=== PATIENT | male | born 1970 | race Caucasian/White ===

== ENCOUNTER 2018-11-28 17:12 | Emergency (ER) | payer BC ==
[2018-11-28] MEDS ORDERED: Sodium Chloride 0.9% 1,000 ML IV ONE (17:19)
[2018-11-28] MEDS ORDERED: Ondansetron 4 MG/2 ML SDV IVPUSH ONE (17:19)
[2018-11-28] MEDS ORDERED: Ketorolac 30 MG/ML SDV IVPUSH ONE (17:19)
--- NOTE | 2018-11-28 17:32 | EDM.PDOC ---
ED HPI GENERAL MEDICAL PROBLEM - General Chief Complaint: Abdominal Pain Stated Complaint: ABDOMINAL PAIN Time Seen by Provider: 11/28/18 17:26 - History of Present Illness INITIAL COMMENTS - FREE TEXT/NARRATIVE: HISTORY AND PHYSICAL: History of present illness: Patient's 47-year-old white male presents with a concern of discomfort with urination and suprapubic discomfort he's had this off and on for the last 2 weeks denies fever chills nausea vomiting denies urethral discharge denies history of prostatitis denies concern of STD Review of systems: As per history of present illness and below otherwise all systems reviewed and negative. Past medical history: As per history of present illness and as reviewed below otherwise noncontributory. Surgical history: As per history of present illness and as reviewed below otherwise noncontributory. Social history: No reported history of drug or alcohol abuse. Family history: As per history of present illness and as reviewed below otherwise noncontributory. Physical exam: HEENT: Atraumatic, normocephalic, pupils reactive, negative for conjunctival pallor or scleral icterus, mucous membranes moist, throat clear, neck supple, nontender, trachea midline. Lungs: Clear to auscultation, breath sounds equal bilaterally, chest nontender. Heart: S1S2, regular, negative for clicks, rubs, or JVD. Abdomen: Soft, nondistended, nontender. Negative for masses or hepatosplenomegaly. Negative for costovertebral tenderness. Pelvis: Stable nontender. Genitourinary: Deferred. Rectal: Deferred. Extremities: Atraumatic, negative for cords or calf pain. Neurovascular unremarkable. Neuro: Awake, alert, oriented. Cranial nerves II through XII unremarkable. Cerebellum unremarkable. Motor and sensory unremarkable throughout. Exam nonfocal. Diagnostics: UA with reflex micro-/culture Therapeutics: None Impression: #1 UTI Definitive disposition and diagnosis as appropriate pending reevaluation and review of above. - Related Data Allergies Allergy/AdvReac Type Severity Reaction Status Date / Time No Known Allergies Allergy Verified 11/28/18 17:28 Home Meds: Home Meds Lisinopril 10 mg PO DAILY #10 tablet 08/23/18 [Rx] Past Medical History HEENT History: Reports: None Other HEENT History: wears contacts Cardiovascular History: Reports: Hypertension Respiratory History: Reports: None Gastrointestinal History: Reports: None Genitourinary History: Reports: None Musculoskeletal History: Reports: Back Pain, Chronic Neurological History: Reports: None Psychiatric History: Reports: Anxiety Endocrine/Metabolic History: Reports: Obesity/BMI 30+ Hematologic History: Reports: None Immunologic History: Reports: None Oncologic (Cancer) History: Reports: None Dermatologic History: Reports: None - Infectious Disease History Infectious Disease History: Reports: Chicken Pox - Past Surgical History Head Surgeries/Procedures: Reports: None HEENT Surgical History: Reports: Eye Surgery (right eye foreign body removal, cataract removal) Cardiovascular Surgical History: Reports: None Respiratory Surgical History: Reports: None GI Surgical History: Reports: None Male Surgical History: Reports: None Endocrine Surgical History: Reports: None Neurological Surgical History: Reports: None Musculoskeletal Surgical History: Reports: None Oncologic Surgical History: Reports: None Dermatological Surgical History: Reports: None Social & Family History - Family History Family Medical History: Noncontributory Cardiac: Reports: Hypertension - Caffeine Use Caffeine Use: Reports: Coffee ED ROS GENERAL - Review of Systems Review Of Systems: ROS reveals no pertinent complaints other than HPI. ED EXAM, GENERAL - Physical Exam Exam: See Below (See dictation) Course - Vital Signs Text/Narrative:: I discussed with patient need to follow-up nonspecific CT scan findings and nonspecific interval change patient understands and agrees. Last Recorded V/S: Last Vital Signs Temp 36.2 C 11/28/18 17:25 Pulse 70 11/28/18 17:25 Resp 18 11/28/18 17:25 BP 135/94 H 11/28/18 17:25 Pulse Ox 97 11/28/18 17:25 - Orders/Labs/Meds Orders: Active Orders 24 hr Category Date Time Status CHLAMYDIA AND GONORRHEA BY TMA Stat Lab 11/28/18 17:50 Received Labs: Laboratory Tests 11/28/18 11/28/18 11/28/18 Range/Units 17:35 17:57 17:57 WBC 5.74 (4.0-11.0) K/uL RBC 5.02 (4.50-5.90) M/uL Hgb 15.3 (13.0-17.0) g/dL Hct 45.1 (38.0-50.0) % MCV 89.8 (80.0-98.0) fL MCH 30.5 (27.0-32.0) pg MCHC 33.9 (31.0-37.0) g/dL RDW Std Deviation 42.9 (28.0-62.0) fl RDW Coeff of Brigida 13 (11.0-15.0) % Plt Count 253 (150-400) K/uL MPV 9.60 (7.40-12.00) fL Neut % (Auto) 49.5 (48.0-80.0) % Lymph % (Auto) 40.6 H (16.0-40.0) % [place] % (Auto) 6.8 (0.0-15.0) % Eos % (Auto) 2.4 (0.0-7.0) % Baso % (Auto) 0.7 (0.0-1.5) % Neut # (Auto) 2.8 (1.4-5.7) K/uL Lymph # (Auto) 2.3 (0.6-2.4) K/uL [place] # (Auto) 0.4 (0.0-0.8) K/uL Eos # (Auto) 0.1 (0.0-0.7) K/uL Baso # (Auto) 0.0 (0.0-0.1) K/uL Nucleated RBC % 0.0 /100WBC Nucleated RBCs # 0 K/uL Sodium 141 (136-148) mmol/L Potassium 4.1 (3.5-5.1) mmol/L Chloride 105 (98-107) mmol/L Carbon Dioxide 30.3 (21.0-32.0) mmol/L BUN 16 (7.0-18.0) mg/dL Creatinine 1.2 (0.8-1.3) mg/dL Est Cr Clr Drug Dosing 87.85 mL/min Estimated GFR (MDRD) > 60.0 ml/min Glucose 80 (74-106) mg/dL Calcium 9.4 (8.5-10.1) mg/dL Total Bilirubin 0.5 (0.2-1.0) mg/dL AST 14 L (15-37) IU/L ALT 17 (14-63) IU/L Alkaline Phosphatase 51 (46-116) U/L Total Protein 7.3 (6.4-8.2) g/dL Albumin 4.1 (3.4-5.0) g/dL Globulin 3.2 (2.6-4.0) g/dL Albumin/Globulin Ratio 1.3 (0.9-1.6) Urine Color YELLOW Urine Appearance CLEAR Urine pH 5.5 (5.0-8.0) Ur Specific [place] >= 1.030 (1.001-1.035) Urine Protein NEGATIVE (NEGATIVE) mg/dL Urine Glucose (UA) NEGATIVE (NEGATIVE) mg/dL Urine Ketones NEGATIVE (NEGATIVE) mg/dL Urine Occult Blood NEGATIVE (NEGATIVE) Urine Nitrite NEGATIVE (NEGATIVE) Urine Bilirubin NEGATIVE (NEGATIVE) Urine Urobilinogen 0.2 (<2.0) EU/dL Ur Leukocyte Esterase NEGATIVE (NEGATIVE) Meds: Medications Discontinued Medications Generic Name Dose Route Start Last Admin Trade Name Dennisq PRN Reason Stop Dose Admin Colchicine Confirm 11/28/18 18:51 11/28/18 19:07 Colcrys Administered 11/28/18 18:52 Not Given Dose 1.8 mg .ROUTE .STK-MED ONE Sodium Chloride 1,000 mls @ 999 mls/hr 11/28/18 17:19 11/28/18 17:39 Normal Saline IV 11/28/18 18:19 Not Given STAT ONE Ketorolac Tromethamine 30 mg 11/28/18 17:19 11/28/18 17:39 Toradol IVPUSH 11/28/18 17:20 Not Given ONETIME ONE Ondansetron HCl 4 mg 11/28/18 17:19 11/28/18 17:39 Zofran IVPUSH 11/28/18 17:20 Not Given ONETIME ONE Departure - Departure Time of Disposition: 19:10 Disposition: Home, Self-Care 01 Condition: Good Clinical Impression: Encounter for medical screening examination, Urethritis - Discharge Information Referrals: Oniel Weiss MD [Primary Care Provider] - Forms: ED Department Discharge Additional Instructions: The following information is given to patients seen in the emergency department who are being discharged to home. This information is to outline your options for follow-up care. We provide all patients seen in our emergency department with a follow-up referral. The need for follow-up, as well as the timing and circumstances, are variable depending upon the specifics of your emergency department visit. If you don't have a primary care physician on staff, we will provide you with a referral. We always advise you to contact your personal physician following an emergency department visit to inform them of the circumstance of the visit and for follow-up with them and/or the need for any referrals to a consulting specialist. The emergency department will also refer you to a specialist when appropriate. This referral assures that you have the opportunity for followup care with a specialist. All of these measure are taken in an effort to provide you with optimal care, which includes your followup. Under all circumstances we always encourage you to contact your private physician who remains a resource for coordinating your care. When calling for followup care, please make the office aware that this follow-up is from your recent emergency room visit. If for any reason you are refused follow-up, please contact the [facility] emergency department at and asked to speak to the emergency department charge nurse. Doxycycline as prescribed follow-up primary medical doctor as needed as discussed and return as needed as discussed - My Orders Last 24 Hours: My Active Orders 11/28/18 17:50 CHLAMYDIA AND GONORRHEA BY TMA Stat - Assessment/Plan Last 24 Hours: My Active Orders 11/28/18 17:50 CHLAMYDIA AND GONORRHEA BY TMA Stat
[2018-11-28 18:50] LABS: CHLORIDE,CL 105 mmol/L (98-107); SODIUM,NA 141 mmol/L (136-148)
[2018-11-28] MEDS ORDERED: Colchicine 0.6 MG Tab ONE (18:51)
--- NOTE | 2018-11-28 19:06 | CT ---
HISTORY: Abdominal pain. TECHNIQUE: CT abdomen pelvis without contrast. COMPARISON: CT abdomen pelvis 10/09/2018. FINDINGS: Abdomen: Liver, pancreas, spleen, adrenal glands, and kidneys are unremarkable. No hydronephrosis. No dilated bowel. Appendix is normal. No free fluid or free intraperitoneal gas. Few lymph nodes in the central mesentery have increased in size since comparison CT. Largest lymph node measures 12 mm short axis (series 201 image 77). No abdominal aortic aneurysm. Pelvis: No lymphadenopathy. Musculoskeletal: Mild degenerative changes of the spine. Lower chest: 4-5 mm noncalcified subpleural nodule in the right lower lobe (series 201 image 15) is unchanged. IMPRESSION: 1. Increase in size of a few mesenteric lymph nodes since 10/09/2018 CT. At least one mesenteric lymph node is mildly enlarged. Lymph nodes may be reactive. Recommend follow-up CT in 3-6 months to assess stability. 2. No acute findings in the abdomen or pelvis otherwise. 3. Unchanged small pleural nodule in the right lower lobe. If patient is high risk for malignancy, consider follow-up chest CT in October 2019. Please note that all CT scans at this facility use dose modulation, iterative reconstruction, and/or weight-based dosing when appropriate to reduce radiation dose to as low as reasonably achievable. Dictated by Chris Garcia MD @ Nov 28 2018 6:49PM Signed by Dr. Chris Garcia @ Nov 28 2018 7:04PM
[2018-11-28 19:40] VITALS: BP 128/81
== END 2018-11-28 19:30 | disposition home or self-care (01) ==
LOC: MW.ED 17:12
DX: N34.2 Other urethritis (principal); I10 Essential (primary) hypertension; Z79.899 Other long term (current) drug therapy; Z98.890 Other specified postprocedural states
CPT/HCPCS: 36415; 74176; 74176-26; 80053; 81003; 85025; 87491; 87591; 99284-25

== ENCOUNTER 2019-03-26 18:14 | Emergency (ER) | payer BC ==
[2019-03-26] MEDS ORDERED: Ketorolac 60 MG/2 ML SDV IM ONE (18:41)
--- NOTE | 2019-03-26 18:41 | EDM.PDOC ---
ED HPI GENERAL MEDICAL PROBLEM - General Chief Complaint: Upper Extremity Injury/Pain Stated Complaint: SHOULDER PAIN/HEADACHE Time Seen by Provider: 03/26/19 18:28 Source of Information: Reports: Patient History Limitations: Reports: No Limitations - History of Present Illness INITIAL COMMENTS - FREE TEXT/NARRATIVE: HISTORY AND PHYSICAL: History of present illness: Patient is a 48-year-old male presents to the ED today with concern of right shoulder pain 1 week. Patient states he feels as if the pain starts his neck and it shoots down to her shoulder. Patient denies any injury to his neck or shoulder. Patient has not taken anything for his symptoms. Patient states he came into the ED today because he was told by a friend that shoulder pain can be a sign of a heart attack. Patient denies any chest pain, shortness of breath , or diaphoresis. Patient denies any other symptoms at this time. Patient denies fever, chills, chest pain, shortness of breath, or cough. Denies headache, neck stiff ness, change in vision, syncope, or near syncope. Denies nausea, vomiting, abdominal pain, diarrhea, constipation, or dysuria. Has not noted any blood in urine or stool. Patient has been eating and drinking appropriately. Patient denies any health history. Review of systems: As per history of present illness and below otherwise all systems reviewed and negative. Past medical history: As per history of present illness and as reviewed below otherwise noncontributory. Surgical history: As per history of present illness and as reviewed below otherwise noncontributory. Social history: See social history for further information Family history: As per history of present illness and as reviewed below otherwise noncontributory. Physical exam: General: Patient is alert, oriented, and in no acute distress. Patient sitting comfortably on exam table. HEENT: Atraumatic, normocephalic, pupils equal and reactive bilaterally, negative for conjunctival pallor or scleral icterus, mucous membranes moist, TMs normal bilaterally, throat clear, neck supple, nontender, trachea midline. No drooling or trismus noted. No meningeal signs. No hot potato voice noted. Lungs: Clear to auscultation, breath sounds equal bilaterally, chest nontender. Heart: S1S2, regular rate and rhythm without overt murmur Abdomen: Soft, nondistended, nontender. Negative for masses or hepatosplenomegaly. Negative for costovertebral tenderness. Pelvis: Stable nontender. Genitourinary: Deferred. Rectal: Deferred. Skin: Intact, warm, dry. No lesions or rashes noted. Extremities: Atraumatic, negative for cords or calf pain. Neurovascular unremarkable. No obvious deformities, step-offs, or crepitus of the complete spine and right shoulder. Generalized pain to palpation of the right shoulder. Patient has full range of motion of the shoulder without difficulty or pain. Mild pain to palpation of the cervical spine with reproducible shoulder pain to palpation. Radial pulses grossly intact with capillary refill less than 2 seconds. Neuro: Awake, alert, oriented. Cranial nerves II through XII unremarkable. Cerebellum unremarkable. Motor and sensory unremarkable throughout. Exam nonfocal. Notes: Discussed the importance for follow-up with primary care provider and with orthopedic clinic. Voices understanding and is agreeable to plan of care. Denies any further questions or concerns at this time. Diagnostics: Cervical spine x-ray, right shoulder x-ray, CBC, CMP, troponin, EKG Therapeutics: Toradol Prescription: Diclofenac, Flexeril Impression: Cervical radiculopathy Plan: 1. Take medication as prescribed. You can also use Tylenol as directed for pain and discomfort. 2. Follow-up with a primary care provider or orthopedic provider as discussed. Return to ED as needed and as discussed. Definitive disposition and diagnosis as appropriate pending reevaluation and review of above. right sholuder Pain Score (Numeric/FACES): 8 - Related Data Allergies Allergy/AdvReac Type Severity Reaction Status Date / Time No Known Allergies Allergy Verified 03/26/19 18:28 Home Meds: Home Meds Lisinopril 10 mg PO DAILY #10 tablet 08/23/18 [Rx] Cyclobenzaprine [Flexeril] 10 mg PO TID PRN #10 tab 03/26/19 [Rx] Diclofenac Sodium [Voltaren] 75 mg PO BIDMEALS PRN #12 tab.cr 03/26/19 [Rx] Past Medical History HEENT History: Reports: None Other HEENT History: wears contacts Cardiovascular History: Reports: Hypertension Respiratory History: Reports: None Gastrointestinal History: Reports: None Genitourinary History: Reports: None Musculoskeletal History: Reports: Back Pain, Chronic Neurological History: Reports: None Psychiatric History: Reports: Anxiety Endocrine/Metabolic History: Reports: Obesity/BMI 30+ Hematologic History: Reports: None Immunologic History: Reports: None Oncologic (Cancer) History: Reports: None Dermatologic History: Reports: None - Infectious Disease History Infectious Disease History: Reports: Chicken Pox - Past Surgical History Head Surgeries/Procedures: Reports: None HEENT Surgical History: Reports: Eye Surgery Cardiovascular Surgical History: Reports: None Respiratory Surgical History: Reports: None GI Surgical History: Reports: None Male Surgical History: Reports: None Endocrine Surgical History: Reports: None Neurological Surgical History: Reports: None Musculoskeletal Surgical History: Reports: None Oncologic Surgical History: Reports: None Dermatological Surgical History: Reports: None Social & Family History - Family History Family Medical History: Noncontributory Cardiac: Reports: Hypertension - Tobacco Use Smoking Status *Q: Never Smoker Second Hand Smoke Exposure: No - Caffeine Use Caffeine Use: Reports: Coffee - Recreational Drug Use Recreational Drug Use: No Review of Systems - Review of Systems Review Of Systems: ROS reveals no pertinent complaints other than HPI. ED EXAM, GENERAL - Physical Exam Exam: See Below (See dictation) Course - Vital Signs Last Recorded V/S: Last Vital Signs Temp 35.8 C 03/26/19 18:24 Pulse 69 03/26/19 21:00 Resp 16 03/26/19 21:00 BP 112/76 03/26/19 21:00 Pulse Ox 95 03/26/19 21:00 - Orders/Labs/Meds Orders: Active Orders 24 hr Category Date Time Status EKG Documentation Completion [RC] STAT Care 03/26/19 18:28 Active Labs: Laboratory Tests 03/26/19 03/26/19 Range/Units 18:36 18:36 WBC 5.70 (4.0-11.0) K/uL RBC 5.03 (4.50-5.90) M/uL Hgb 15.4 (13.0-17.0) g/dL Hct 45.3 (38.0-50.0) % MCV 90.1 (80.0-98.0) fL MCH 30.6 (27.0-32.0) pg MCHC 34.0 (31.0-37.0) g/dL RDW Std Deviation 43.0 (28.0-62.0) fl RDW Coeff of Brigida 13 (11.0-15.0) % Plt Count 270 (150-400) K/uL MPV 9.90 (7.40-12.00) fL Neut % (Auto) 58.3 (48.0-80.0) % Lymph % (Auto) 32.6 (16.0-40.0) % [place] % (Auto) 5.3 (0.0-15.0) % Eos % (Auto) 3.3 (0.0-7.0) % Baso % (Auto) 0.5 (0.0-1.5) % Neut # (Auto) 3.3 (1.4-5.7) K/uL Lymph # (Auto) 1.9 (0.6-2.4) K/uL [place] # (Auto) 0.3 (0.0-0.8) K/uL Eos # (Auto) 0.2 (0.0-0.7) K/uL Baso # (Auto) 0.0 (0.0-0.1) K/uL Nucleated RBC % 0.0 /100WBC Nucleated RBCs # 0 K/uL Sodium 140 (136-148) mmol/L Potassium 3.4 L (3.5-5.1) mmol/L Chloride 105 (98-107) mmol/L Carbon Dioxide 25.3 (21.0-32.0) mmol/L BUN 16 (7.0-18.0) mg/dL Creatinine 1.2 (0.8-1.3) mg/dL Est Cr Clr Drug Dosing 86.93 mL/min Estimated GFR (MDRD) > 60.0 ml/min Glucose 168 H (74-106) mg/dL Calcium 9.0 (8.5-10.1) mg/dL Total Bilirubin 0.4 (0.2-1.0) mg/dL AST 21 (15-37) IU/L ALT 36 (14-63) IU/L Alkaline Phosphatase 49 (46-116) U/L Troponin I < 0.050 (0.000-0.056) ng/mL Total Protein 7.6 (6.4-8.2) g/dL Albumin 4.3 (3.4-5.0) g/dL Globulin 3.3 (2.6-4.0) g/dL Albumin/Globulin Ratio 1.3 (0.9-1.6) Meds: Medications Discontinued Medications Generic Name Dose Route Start Last Admin Trade Name Freq PRN Reason Stop Dose Admin Ketorolac Tromethamine 60 mg 03/26/19 18:41 03/26/19 19:02 Toradol IM 03/26/19 18:42 60 mg ONETIME ONE Administration Departure - Departure Time of Disposition: 20:46 Disposition: Home, Self-Care 01 Clinical Impression: Cervical radicular pain - Discharge Information Prescriptions: Cyclobenzaprine [Flexeril] 10 mg PO TID PRN #10 tab PRN Reason: Spasms Diclofenac Sodium [Voltaren] 75 mg PO BIDMEALS PRN #12 tab.cr PRN Reason: Pain Instructions: Cervical Sprain, [id number] Referrals: PCP,None [Primary Care Provider] - Forms: ED Department Discharge Additional Instructions: The following information is given to patients seen in the emergency department who are being discharged to home. This information is to outline your options for follow-up care. We provide all patients seen in our emergency department with a follow-up referral. The need for follow-up, as well as the timing and circumstances, are variable depending upon the specifics of your emergency department visit. If you don't have a primary care physician on staff, we will provide you with a referral. We always advise you to contact your personal physician following an emergency department visit to inform them of the circumstance of the visit and for follow-up with them and/or the need for any referrals to a consulting specialist. The emergency department will also refer you to a specialist when appropriate. This referral assures that you have the opportunity for follow-up care with a specialist. All of these measure are taken in an effort to provide you with optimal care, which includes your follow-up. Under all circumstances we always encourage you to contact your private physician who remains a resource for coordinating your care. When calling for follow-up care, please make the office aware that this follow-up is from your recent emergency room visit. If for any reason you are refused follow-up, please contact the [facility] Emergency Department at and asked to speak to the emergency department charge nurse. [facility] [address] [place] [id number] [facility] [address] [place] [address] 1. Take medication as prescribed. You can also use Tylenol as directed for pain and discomfort. 2. Follow-up with a primary care provider or orthopedic provider as discussed. Return to ED as needed and as discussed. - My Orders Last 24 Hours: My Active Orders 03/26/19 18:28 EKG Documentation Completion [RC] STAT - Assessment/Plan Last 24 Hours: My Active Orders 03/26/19 18:28 EKG Documentation Completion [RC] STAT
[2019-03-26 19:14] LABS: CHLORIDE,CL 105 mmol/L (98-107); SODIUM,NA 140 mmol/L (136-148)
[2019-03-26 21:01] VITALS: BP 112/76
--- NOTE | 2019-03-26 21:03 | CR ---
HISTORY: Right shoulder pain, fall. TECHNIQUE: Two views of the right shoulder. COMPARISON: No prior. FINDINGS: The glenohumeral joint alignment is not optimally determined on the transscapular Y-view. If there is clinical concern for a posterior shoulder dislocation, consider obtaining an axillary view. No proximal humeral fracture. AC joint degenerative arthrosis. No abnormality within the right lung. IMPRESSION: 1. No acute fracture. 2. The glenohumeral joint alignment is not optimally determined on these views. If there is clinical concern for a posterior shoulder dislocation, an axillary view could be obtained to better delineate alignment. Dictated by Arturo Barrett MD @ 03/26/2019 9:02:31 PM Dictated by: Arturo Barrett MD @ 03/26/2019 21:02:37 (Electronically Signed)
--- NOTE | 2019-03-26 21:05 | CR ---
HISTORY: Pain. TECHNIQUE: Three views of the cervical spine. COMPARISON: No prior. FINDINGS: The cervical alignment is maintained. There is no acute fracture. Mild loss of disc height at C5-C6. The dens appears intact. Normal articulation of the lateral masses of C1 and C2. No abnormal prevertebral soft tissue swelling. IMPRESSION: 1. No acute fracture or malalignment. 2. Mild loss of disc height at C5-C6. Dictated by Arturo Barrett MD @ 03/26/2019 9:04:19 PM Dictated by: Arturo Barrett MD @ 03/26/2019 21:04:25 (Electronically Signed)
== END 2019-03-26 21:02 | disposition home or self-care (01) ==
LOC: MW.ED 18:14
DX: M54.12 Radiculopathy, cervical region (principal); I10 Essential (primary) hypertension; F41.9 Anxiety disorder, unspecified; Z79.899 Other long term (current) drug therapy
CPT/HCPCS: 36415; 72040; 73030; 80053; 84484; 85025; 93005; 96372; 99284; J1885

== ENCOUNTER 2019-06-18 13:24 | Observation (INO) | payer BC ==
[2019-06-18] MEDS ORDERED: Sodium Chloride 0.9% 1,000 ML IV ONE ×3 (13:25→16:41)
[2019-06-18] MEDS ORDERED: Sodium Chloride 0.9% 10 ML SDV IV PRN (13:45)
[2019-06-18] MEDS ORDERED: Sodium Chloride 0.9% 2.5 ML Syringe FLUSH PRN (13:45)
[2019-06-18] MEDS ORDERED: Sodium Chloride 0.9% 10 ML Syringe FLUSH PRN (13:45)
--- NOTE | 2019-06-18 14:05 | CT ---
INDICATION: Stroke protocol. COMPARISON: None available. TECHNIQUE: CT examination of the head was performed with 3 mm thick axial sections without intravenous contrast. Images were obtained from the vertex of the skull through the skull base, and I examined the images with the brain and bone windows. Please note that all CT scans at this facility use dose modulation, iterative reconstruction, and/or weight-based dosing when appropriate to reduce radiation dose to as low as reasonably achievable. FINDINGS: : The brain is normal in appearance for the patient`s age on today`s study, with no sign of mass lesion, mass effect, hemorrhage, or edema. The ventricles and sulci are normal in appearance for the patient`s age. There appears to have been resection of the lens from the right globe, with a tiny radiodense foreign body located along the medial aspect of the residual lens or lens implant. The left globe is normal in appearance. There is an old medial left orbital blowout fracture. The visualized portions of the paranasal sinuses and mastoids are clear. The osseous structures are normal in their appearance with no sign of abnormality in the skull base or calvarium. IMPRESSION: Normal CT appearance of the brain for the patient`s age Status post right cataract surgery with tiny radiopaque foreign body located along the medial aspect of the residual lens or the lens implant. Old medial left orbital blowout fracture. Please note that all CT scans at this facility use dose modulation, iterative reconstruction, and/or weight-based dosing when appropriate to reduce radiation dose to as low as reasonably achievable. Dictated by Harvey Levi MD @ Jun 18 2019 1:59PM Signed by Dr. Harvey Levi @ Jun 18 2019 2:03PM
[2019-06-18] MEDS ORDERED: Aspirin 81 MG Tab.Chew PO ONE (14:15)
[2019-06-18] MEDS ORDERED: Nitroglycerin 0.4 MG Tab.SL SL PRN (14:17)
[2019-06-18 14:24] LABS: BLOOD UREA NITROGEN,BUN 12 mg/dL (7.0-18.0); CARBON DIOXIDE,CO2 28.2 mmol/L (21.0-32.0); CHLORIDE,CL 106 mmol/L (98-107); GLUCOSE RANDOM 89 mg/dL (74-106); LIPASE 141 U/L (73-393); POTASSIUM,K 3.9 mmol/L (3.5-5.1); SODIUM,NA 142 mmol/L (136-148)
--- NOTE | 2019-06-18 14:30 | CR ---
Indication: Chest pain. Technique: AP portable views of the chest were obtained. Comparison: August 23, 2018. Findings: The heart is normal in size. The lungs are clear. No infiltrate, pleural effusion, or pneumothorax is identified. Impression: No acute cardiopulmonary process. Dictated by Shy Cespedes MD @ Jun 18 2019 2:27PM Signed by Dr. Shy Cespedes @ Jun 18 2019 2:28PM
--- NOTE | 2019-06-18 15:07 | EDM.PDOC ---
ED HPI GENERAL MEDICAL PROBLEM - General Chief Complaint: Chest Pain Stated Complaint: FLUSHED AND LIGHT HEADED HX OF HIGH BLOOD PRESSURE Time Seen by Provider: 06/18/19 13:25 Source of Information: Reports: Patient History Limitations: Reports: No Limitations - History of Present Illness INITIAL COMMENTS - FREE TEXT/NARRATIVE: HISTORY AND PHYSICAL: History of present illness: Patient is a 48-year-old male presents to the ED today for 6 out of 10 midsternal chest pain, dizziness, and feeling flushed that occurred 10 minutes prior to arrival to the ED. Patient states he has never had these symptoms prior. History of present illness is then limited patient cooperation and he does not finish answering questions. Patient states he did not take anything before coming to the ED. Patient has a history of hypertension and denies any other health history. Patient denies fever, chills, shortness of breath, or cough. Denies headache, neck stiff ness, change in vision, syncope, or near syncope. Denies nausea, vomiting, abdominal pain, diarrhea, constipation, or dysuria. Has not noted any blood in urine or stool. Patient has been eating and drinking appropriately. Review of systems: As per history of present illness and below otherwise all systems reviewed and negative. Past medical history: As per history of present illness and as reviewed below otherwise noncontributory. Surgical history: As per history of present illness and as reviewed below otherwise noncontributory. Social history: See social history for further information Family history: As per history of present illness and as reviewed below otherwise noncontributory. Physical exam: General: Patient is alert, and in no acute distress. Patient sitting comfortably on exam table. HEENT: Atraumatic, normocephalic, pupils equal and reactive bilaterally, negative for conjunctival pallor or scleral icterus, mucous membranes moist, TMs normal bilaterally, throat clear, neck supple, nontender, trachea midline. No drooling or trismus noted. No meningeal signs. No hot potato voice noted. Lungs: Clear to auscultation, breath sounds equal bilaterally, chest nontender. Heart: S1S2, regular rate and rhythm without overt murmur Abdomen: Soft, nondistended, nontender. Negative for masses or hepatosplenomegaly. Negative for costovertebral tenderness. Pelvis: Stable nontender. Genitourinary: Deferred. Rectal: Deferred. Skin: Intact, warm, dry. No lesions or rashes noted. Extremities: Atraumatic, negative for cords or calf pain. Neurovascular unremarkable. Neuro: Awake, alert to place and time but did not answer questions appropriately for an episode of approximately 5 minutes. Cranial nerves II through XII unremarkable. Cerebellum unremarkable. Motor and sensory unremarkable throughout. Notes: Dr. Rubi verbally involved in patient care. During the course of my interview, there was one instance where patient did appear confused and had confused some words with his sentences. When asked to state his name, he did not reply appropriately. Stroke code was called at this time. Last known time well 13:46. Patient's symptoms of this had resolved pretty quickly and he was alert, oriented to person place and time. Patient's only complaints at this time is improving chest pain and he denies any other symptoms. Dr. Segovia was called in consult on patient. Will admit to observation. Voices understanding and is agreeable to plan of care. Denies any further questions or concerns at this time. Diagnostics: CBC, CMP, UA, udrug, ethanol, EKG, Troponin, CXR, Head CT, theatre instructor, Therapeutics: ASA (Patient declines nitro), saline Impression: Chest pain, unspecified Dizziness Altered mental status, resolved Plan: 1. Admit to observation to Dr. Segovia. Definitive disposition and diagnosis as appropriate pending reevaluation and review of above. Generalized Pain Score (Numeric/FACES): 7 - Related Data Allergies Allergy/AdvReac Type Severity Reaction Status Date / Time No Known Allergies Allergy Verified 06/18/19 13:32 Home Meds: Home Meds Lisinopril 10 mg PO DAILY #10 tablet 08/23/18 [Rx] Past Medical History HEENT History: Reports: None Other HEENT History: wears contacts Cardiovascular History: Reports: Hypertension Respiratory History: Reports: None Gastrointestinal History: Reports: None Genitourinary History: Reports: None Musculoskeletal History: Reports: Back Pain, Chronic Neurological History: Reports: None Psychiatric History: Reports: Anxiety Endocrine/Metabolic History: Reports: Obesity/BMI 30+ Hematologic History: Reports: None Immunologic History: Reports: None Oncologic (Cancer) History: Reports: None Dermatologic History: Reports: None - Infectious Disease History Infectious Disease History: Reports: Chicken Pox - Past Surgical History Head Surgeries/Procedures: Reports: None HEENT Surgical History: Reports: Eye Surgery Cardiovascular Surgical History: Reports: None Respiratory Surgical History: Reports: None GI Surgical History: Reports: None Male Surgical History: Reports: None Endocrine Surgical History: Reports: None Neurological Surgical History: Reports: None Musculoskeletal Surgical History: Reports: None Oncologic Surgical History: Reports: None Dermatological Surgical History: Reports: None Social & Family History - Family History Family Medical History: Noncontributory Cardiac: Reports: Hypertension - Tobacco Use Years of Tobacco use: 20 Packs/Tins Daily: 0.5 - Caffeine Use Caffeine Use: Reports: Coffee, Energy Drinks - Recreational Drug Use Recreational Drug Use: No ED ROS GENERAL - Review of Systems Review Of Systems: ROS reveals no pertinent complaints other than HPI. ED EXAM, GENERAL - Physical Exam Exam: See Below (see dictation) Course - Vital Signs Last Recorded V/S: Last Vital Signs Temp 37.1 C 06/18/19 13:32 Pulse 65 06/18/19 13:32 Resp 16 06/18/19 13:32 BP 145/93 H 06/18/19 13:32 Pulse Ox 95 06/18/19 13:32 - Orders/Labs/Meds Orders: Active Orders 24 hr Category Date Time Status Admission Status [Patient Status] [ADT] Stat ADT 06/18/19 14:56 Ordered Assess Neurological Status [RC] ASDIRECTED Care 06/18/19 13:45 Active Bedrest [RC] ASDIRECTED Care 06/18/19 13:45 Active Cardiac Monitoring [RC] . DIRECTED Care 06/18/19 13:25 Active Cardiac Monitoring [RC] . DIRECTED Care 06/18/19 13:45 Active EKG Documentation Completion [RC] STAT Care 06/18/19 13:26 Active EKG Documentation Completion [RC] STAT Care 06/18/19 13:45 Active Height and Weight [RC] UPON Care 06/18/19 13:45 Active Initiate Acute Stroke Protocol [RC] STAT Care 06/18/19 13:45 Active NIH Stroke Scale [RC] ASDIRECTED Care 06/18/19 13:45 Active Nursing Bedside Swallow Screen [RC] ASDIRECTED Care 06/18/19 13:45 Active Oxygen Therapy [RC] ASDIRECTED Care 06/18/19 13:45 Active Stroke Education, General [RC] Click to Edit Care 06/18/19 13:45 Active Vital Signs [RC] Q15M Care 06/18/19 13:45 Active Nitroglycerin [Nitrostat] Med 06/18/19 14:17 Active 0.4 mg SL Q5M PRN Sodium Chloride 0.9% [Normal Saline] Med 06/18/19 13:45 Active 10 ml IV ASDIRECTED PRN Sodium Chloride 0.9% [Saline Flush] Med 06/18/19 13:45 Active 10 ml FLUSH ASDIRECTED PRN Sodium Chloride 0.9% [Saline Flush] Med 06/18/19 13:45 Active 2.5 ml FLUSH ASDIRECTED PRN Peripheral IV Insertion Adult [OM.PC] Stat Oth 06/18/19 13:45 Ordered Peripheral IV Insertion Adult [OM.PC] Stat Ot 06/18/19 13:45 Ordered Resuscitation Status Stat Resus Stat 06/18/19 13:45 Ordered Medication Orders Nitroglycerin (Nitrostat) 0.4 mg SL Q5M PRN PRN Reason: Chest Pain Sodium Chloride (Saline Flush) 10 ml FLUSH ASDIRECTED PRN PRN Reason: Keep Vein Open Last Admin: 06/18/19 14:05 Dose: 10 ml Sodium Chloride (Saline Flush) 2.5 ml FLUSH ASDIRECTED PRN PRN Reason: Keep Vein Open Last Admin: 06/18/19 14:05 Dose: 2.5 ml Sodium Chloride (Normal Saline) 10 ml IV ASDIRECTED PRN PRN Reason: IV Use Labs: Laboratory Tests 06/18/19 06/18/19 06/18/19 Range/Units 13:35 13:39 13:39 WBC 3.94 L (4.0-11.0) K/uL RBC 4.75 (4.50-5.90) M/uL Hgb 14.7 (13.0-17.0) g/dL Hct 42.2 (38.0-50.0) % MCV 88.8 (80.0-98.0) fL MCH 30.9 (27.0-32.0) pg MCHC 34.8 (31.0-37.0) g/dL RDW Std Deviation 42.3 (28.0-62.0) fl RDW Coeff of Brigida 13 (11.0-15.0) % Plt Count 240 (150-400) K/uL MPV 10.10 (7.40-12.00) fL Neut % (Auto) 54.5 (48.0-80.0) % Lymph % (Auto) 34.8 (16.0-40.0) % Nash % (Auto) 8.4 (0.0-15.0) % Eos % (Auto) 1.5 (0.0-7.0) % Baso % (Auto) 0.8 (0.0-1.5) % Neut # (Auto) 2.2 (1.4-5.7) K/uL Lymph # (Auto) 1.4 (0.6-2.4) K/uL Nash # (Auto) 0.3 (0.0-0.8) K/uL Eos # (Auto) 0.1 (0.0-0.7) K/uL Baso # (Auto) 0.0 (0.0-0.1) K/uL INR 1.03 Sodium (136-148) mmol/L Potassium (3.5-5.1) mmol/L Chloride (98-107) mmol/L Carbon Dioxide (21.0-32.0) mmol/L BUN (7.0-18.0) mg/dL Creatinine (0.8-1.3) mg/dL Est Cr Clr Drug Dosing mL/min Estimated GFR (MDRD) ml/min Glucose (74-106) mg/dL POC Glucose 72 (60-110) mg/dL Calcium (8.5-10.1) mg/dL Total Bilirubin (0.2-1.0) mg/dL AST (15-37) IU/L ALT (14-63) IU/L Alkaline Phosphatase (46-116) U/L Troponin I (0.000-0.056) ng/mL Total Protein (6.4-8.2) g/dL Albumin (3.4-5.0) g/dL Globulin (2.6-4.0) g/dL Albumin/Globulin Ratio (0.9-1.6) Lipase (73-393) U/L TSH 3rd Generation (0.36-3.74) uIU/mL Urine Color Urine Appearance Urine pH (5.0-8.0) Ur Specific Green[place] (1.001-1.035) Urine Protein (NEGATIVE) mg/dL Urine Glucose (UA) (NEGATIVE) mg/dL Urine Ketones (NEGATIVE) mg/dL Urine Occult Blood (NEGATIVE) Urine Nitrite (NEGATIVE) Urine Bilirubin (NEGATIVE) Urine Urobilinogen (<2.0) EU/dL Ur Leukocyte Esterase (NEGATIVE) Urine Opiates Screen (NEGATIVE) Ur Oxycodone Screen (NEGATIVE) Urine Methadone Screen (NEGATIVE) Ur Barbiturates Screen (NEGATIVE) Ur Phencyclidine Scrn (NEGATIVE) Ur Amphetamine Screen (NEGATIVE) U Methamphetamines Scrn (NEGATIVE) U Benzodiazepines Scrn (NEGATIVE) U Cocaine Metab Screen (NEGATIVE) U Marijuana (THC) Screen (NEGATIVE) Ethyl Alcohol mg/dL 06/18/19 06/18/19 06/18/19 Range/Units 13:39 13:39 13:39 WBC (4.0-11.0) K/uL RBC (4.50-5.90) M/uL Hgb (13.0-17.0) g/dL Hct (38.0-50.0) % MCV (80.0-98.0) fL MCH (27.0-32.0) pg MCHC (31.0-37.0) g/dL RDW Std Deviation (28.0-62.0) fl RDW Coeff of Brigida (11.0-15.0) % Plt Count (150-400) K/uL MPV (7.40-12.00) fL Neut % (Auto) (48.0-80.0) % Lymph % (Auto) (16.0-40.0) % Nash % (Auto) (0.0-15.0) % Eos % (Auto) (0.0-7.0) % Baso % (Auto) (0.0-1.5) % Neut # (Auto) (1.4-5.7) K/uL Lymph # (Auto) (0.6-2.4) K/uL Nash # (Auto) (0.0-0.8) K/uL Eos # (Auto) (0.0-0.7) K/uL Baso # (Auto) (0.0-0.1) K/uL INR Sodium 142 (136-148) mmol/L Potassium 3.9 (3.5-5.1) mmol/L Chloride 106 (98-107) mmol/L Carbon Dioxide 28.2 (21.0-32.0) mmol/L BUN 12 (7.0-18.0) mg/dL Creatinine 0.8 (0.8-1.3) mg/dL Est Cr Clr Drug Dosing 130.39 mL/min Estimated GFR (MDRD) > 60.0 ml/min Glucose 89 (74-106) mg/dL POC Glucose (60-110) mg/dL Calcium 9.5 (8.5-10.1) mg/dL Total Bilirubin 0.9 (0.2-1.0) mg/dL AST 27 (15-37) IU/L ALT 44 (14-63) IU/L Alkaline Phosphatase 42 L (46-116) U/L Troponin I < 0.050 (0.000-0.056) ng/mL Total Protein 7.5 (6.4-8.2) g/dL Albumin 4.6 (3.4-5.0) g/dL Globulin 2.9 (2.6-4.0) g/dL Albumin/Globulin Ratio 1.6 (0.9-1.6) Lipase 141 (73-393) U/L TSH 3rd Generation 1.46 (0.36-3.74) uIU/mL Urine Color Urine Appearance Urine pH (5.0-8.0) Ur Specific [place] (1.001-1.035) Urine Protein (NEGATIVE) mg/dL Urine Glucose (UA) (NEGATIVE) mg/dL Urine Ketones (NEGATIVE) mg/dL Urine Occult Blood (NEGATIVE) Urine Nitrite (NEGATIVE) Urine Bilirubin (NEGATIVE) Urine Urobilinogen (<2.0) EU/dL Ur Leukocyte Esterase (NEGATIVE) Urine Opiates Screen (NEGATIVE) Ur Oxycodone Screen (NEGATIVE) Urine Methadone Screen (NEGATIVE) Ur Barbiturates Screen (NEGATIVE) Ur Phencyclidine Scrn (NEGATIVE) Ur Amphetamine Screen (NEGATIVE) U Methamphetamines Scrn (NEGATIVE) U Benzodiazepines Scrn (NEGATIVE) U Cocaine Metab Screen (NEGATIVE) U Marijuana (THC) Screen (NEGATIVE) Ethyl Alcohol 3 mg/dL 06/18/19 06/18/19 Range/Units 13:48 13:48 WBC (4.0-11.0) K/uL RBC (4.50-5.90) M/uL Hgb (13.0-17.0) g/dL Hct (38.0-50.0) % MCV (80.0-98.0) fL MCH (27.0-32.0) pg MCHC (31.0-37.0) g/dL RDW Std Deviation (28.0-62.0) fl RDW Coeff of Brigida (11.0-15.0) % Plt Count (150-400) K/uL MPV (7.40-12.00) fL Neut % (Auto) (48.0-80.0) % Lymph % (Auto) (16.0-40.0) % Nash % (Auto) (0.0-15.0) % Eos % (Auto) (0.0-7.0) % Baso % (Auto) (0.0-1.5) % Neut # (Auto) (1.4-5.7) K/uL Lymph # (Auto) (0.6-2.4) K/uL Nash # (Auto) (0.0-0.8) K/uL Eos # (Auto) (0.0-0.7) K/uL Baso # (Auto) (0.0-0.1) K/uL INR Sodium (136-148) mmol/L Potassium (3.5-5.1) mmol/L Chloride (98-107) mmol/L Carbon Dioxide (21.0-32.0) mmol/L BUN (7.0-18.0) mg/dL Creatinine (0.8-1.3) mg/dL Est Cr Clr Drug Dosing mL/min Estimated GFR (MDRD) ml/min Glucose (74-106) mg/dL POC Glucose (60-110) mg/dL Calcium (8.5-10.1) mg/dL Total Bilirubin (0.2-1.0) mg/dL AST (15-37) IU/L ALT (14-63) IU/L Alkaline Phosphatase (46-116) U/L Troponin I (0.000-0.056) ng/mL Total Protein (6.4-8.2) g/dL Albumin (3.4-5.0) g/dL Globulin (2.6-4.0) g/dL Albumin/Globulin Ratio (0.9-1.6) Lipase (73-393) U/L TSH 3rd Generation (0.36-3.74) uIU/mL Urine Color YELLOW Urine Appearance CLEAR Urine pH 6.5 (5.0-8.0) Ur Specific [place] 1.010 (1.001-1.035) Urine Protein NEGATIVE (NEGATIVE) mg/dL Urine Glucose (UA) NEGATIVE (NEGATIVE) mg/dL Urine Ketones NEGATIVE (NEGATIVE) mg/dL Urine Occult Blood NEGATIVE (NEGATIVE) Urine Nitrite NEGATIVE (NEGATIVE) Urine Bilirubin NEGATIVE (NEGATIVE) Urine Urobilinogen 0.2 (<2.0) EU/dL Ur Leukocyte Esterase NEGATIVE (NEGATIVE) Urine Opiates Screen NEGATIVE (NEGATIVE) Ur Oxycodone Screen NEGATIVE (NEGATIVE) Urine Methadone Screen NEGATIVE (NEGATIVE) Ur Barbiturates Screen NEGATIVE (NEGATIVE) Ur Phencyclidine Scrn NEGATIVE (NEGATIVE) Ur Amphetamine Screen NEGATIVE (NEGATIVE) U Methamphetamines Scrn NEGATIVE (NEGATIVE) U Benzodiazepines Scrn NEGATIVE (NEGATIVE) U Cocaine Metab Screen NEGATIVE (NEGATIVE) U Marijuana (THC) Screen NEGATIVE (NEGATIVE) Ethyl Alcohol mg/dL Meds: Medications Generic Name Dose Route Start Last Admin Trade Name Freq PRN Reason Stop Dose Admin Nitroglycerin 0.4 mg 06/18/19 14:17 Nitrostat SL Q5M PRN Chest Pain Sodium Chloride 10 ml 06/18/19 13:45 06/18/19 14:05 Saline Flush FLUSH 10 ml ASDIRECTED PRN Administration Keep Vein Open Sodium Chloride 2.5 ml 06/18/19 13:45 06/18/19 14:05 Saline Flush FLUSH 2.5 ml ASDIRECTED PRN Administration Keep Vein Open Sodium Chloride 10 ml 06/18/19 13:45 Normal Saline IV ASDIRECTED PRN IV Use Discontinued Medications Generic Name Dose Route Start Last Admin Trade Name Freq PRN Reason Stop Dose Admin Aspirin 324 mg 06/18/19 14:15 06/18/19 14:27 Aspirin PO 06/18/19 14:16 324 mg ONETIME ONE Administration Sodium Chloride 1,000 mls @ 999 mls/hr 06/18/19 13:25 06/18/19 14:03 Normal Saline IV 06/18/19 14:25 999 mls/hr BOLUS ONE Administration Sodium Chloride 1,000 mls @ 999 mls/hr 06/18/19 13:45 06/18/19 14:06 Normal Saline IV 06/18/19 14:45 Not Given BOLUS ONE Departure - Departure Time of Disposition: 15:17 Disposition: Refer to Observation Clinical Impression: Dizziness Chest pain Qualifiers: Chest pain type: unspecified Qualified Code(s): R07.9 - Chest pain, unspecified Altered mental status Qualifiers: Altered mental status type: unspecified Qualified Code(s): R41.82 - Altered mental status, unspecified - Discharge Information - My Orders Last 24 Hours: My Active Orders 06/18/19 13:25 Cardiac Monitoring [RC] . DIRECTED 06/18/19 13:26 EKG Documentation Completion [RC] STAT 06/18/19 13:45 Assess Neurological Status [RC] ASDIRECTED Bedrest [RC] ASDIRECTED Cardiac Monitoring [RC] . DIRECTED EKG Documentation Completion [RC] STAT Height and Weight [RC] UPON Initiate Acute Stroke Protocol [RC] STAT NIH Stroke Scale [RC] ASDIRECTED Nursing Bedside Swallow Screen [RC] ASDIRECTED Oxygen Therapy [RC] ASDIRECTED Stroke Education, General [RC] Click to Edit Vital Signs [RC] Q15M Sodium Chloride 0.9% [Normal Saline] 10 ml IV ASDIRECTED PRN Sodium Chloride 0.9% [Saline Flush] 10 ml FLUSH ASDIRECTED PRN Sodium Chloride 0.9% [Saline Flush] 2.5 ml FLUSH ASDIRECTED PRN Peripheral IV Insertion Adult [OM.PC] Stat Peripheral IV Insertion Adult [OM.PC] Stat Resuscitation Status Stat 06/18/19 14:17 Nitroglycerin [Nitrostat] 0.4 mg SL Q5M PRN 06/18/19 14:56 Admission Status [Patient Status] [ADT] Stat - Assessment/Plan Last 24 Hours: My Active Orders 06/18/19 13:25 Cardiac Monitoring [RC] . DIRECTED 06/18/19 13:26 EKG Documentation Completion [RC] STAT 06/18/19 13:45 Assess Neurological Status [RC] ASDIRECTED Bedrest [RC] ASDIRECTED Cardiac Monitoring [RC] . DIRECTED EKG Documentation Completion [RC] STAT Height and Weight [RC] UPON Initiate Acute Stroke Protocol [RC] STAT NIH Stroke Scale [RC] ASDIRECTED Nursing Bedside Swallow Screen [RC] ASDIRECTED Oxygen Therapy [RC] ASDIRECTED Stroke Education, General [RC] Click to Edit Vital Signs [RC] Q15M Sodium Chloride 0.9% [Normal Saline] 10 ml IV ASDIRECTED PRN Sodium Chloride 0.9% [Saline Flush] 10 ml FLUSH ASDIRECTED PRN Sodium Chloride 0.9% [Saline Flush] 2.5 ml FLUSH ASDIRECTED PRN Peripheral IV Insertion Adult [OM.PC] Stat Peripheral IV Insertion Adult [OM.PC] Stat Resuscitation Status Stat 06/18/19 14:17 Nitroglycerin [Nitrostat] 0.4 mg SL Q5M PRN 06/18/19 14:56 Admission Status [Patient Status] [ADT] Stat
--- NOTE | 2019-06-18 15:48 | PCM.HP ---
H&P History of Present Illness - General Date of Service: 06/18/19 Admit Problem/Dx: Admission Diagnosis/Problem Admission Diagnosis/Problem Chest pain - History of Present Illness Initial Comments - Free Text/Narative: 48-year-old male presented to [facility] ER with sternal chest pain that started approximately 30 minutes prior to arrival. He has a PMH of hypertension. He has never experienced this type of pain before and is described as being squeezing in nature. He had associated dizziness, nausea, mild shortness of breath and flushing. Pain radiated to his left shoulder and was rated as 6 out of 10 on pain scale. In the ER, initial troponin was negative. CXR was also ordered and was negative. As per ER note, patient did have a brief moment where he responded to questions inappropriately and as such a stroke code was called. Patient' symptoms resolved quickly thereafter and was AOx3. CT head was ordered and was negative. Patient was admitted for further evaluation and treatment. Generalized Pain Score (Numeric/FACES): 7 - Related Data Allergies/Adverse Reactions: Allergies Allergy/AdvReac Type Severity Reaction Status Date / Time No Known Allergies Allergy Verified 06/18/19 13:32 Home Medications: Home Meds Lisinopril 10 mg PO DAILY #10 tablet 08/23/18 [Rx] Past Medical History HEENT History: Reports: None Other HEENT History: wears contacts Cardiovascular History: Reports: Hypertension Respiratory History: Reports: None Gastrointestinal History: Reports: None Genitourinary History: Reports: None Musculoskeletal History: Reports: Back Pain, Chronic Neurological History: Reports: None Psychiatric History: Reports: Anxiety Endocrine/Metabolic History: Reports: Obesity/BMI 30+ Hematologic History: Reports: None Immunologic History: Reports: None Oncologic (Cancer) History: Reports: None Dermatologic History: Reports: None - Infectious Disease History Infectious Disease History: Reports: Chicken Pox - Past Surgical History Head Surgeries/Procedures: Reports: None HEENT Surgical History: Reports: Eye Surgery Cardiovascular Surgical History: Reports: None Respiratory Surgical History: Reports: None GI Surgical History: Reports: None Male Surgical History: Reports: None Endocrine Surgical History: Reports: None Neurological Surgical History: Reports: None Musculoskeletal Surgical History: Reports: None Oncologic Surgical History: Reports: None Dermatological Surgical History: Reports: None Social & Family History - Family History Family Medical History: Noncontributory Cardiac: Reports: Hypertension - Tobacco Use Years of Tobacco use: 20 Packs/Tins Daily: 0.5 - Caffeine Use Caffeine Use: Reports: Coffee, Energy Drinks - Recreational Drug Use Recreational Drug Use: No H&P Review of Systems - Review of Systems: Review Of Systems: ROS reveals no pertinent complaints other than HPI. Exam - Exam Exam: See Below - Vital Signs Vital Signs: Last Vital Signs Temp 98.8 F 06/18/19 13:32 Pulse 65 06/18/19 13:32 Resp 16 06/18/19 13:32 BP 145/93 H 06/18/19 13:32 Pulse Ox 95 06/18/19 13:32 Weight: 270 lb - Exam General: Alert, Oriented, Cooperative HEENT: Conjunctiva Clear, EOMI, Hearing Intact, Posterior Pharynx Clear, Pupils Equal Neck: Supple, Trachea Midline Lungs: Clear to Auscultation, Normal Respiratory Effort Cardiovascular: Regular Rate, Regular Rhythm GI/Abdominal Exam: Normal Bowel Sounds, Soft, Non-Tender, No Distention Extremities: Other (no lower extremity edema appreciated) Peripheral Pulses: 2+: Posterior Tibial (L), Posterior Tibial (R) Skin: Warm, Intact, Moist Neurological: Cranial Nerves Intact, Strength Equal Bilateral, Normal Speech, Normal Tone, Sensation Intact. No: Focal Deficit Neuro Extensive - Mental Status: Alert, Oriented x3, Normal Mood/Affect, Other ( At times patient is slow to respond to questions, however, answers appropriately.) Psychiatric: Alert, Normal Affect, Normal Mood - Patient Data Lab Results Last 24 hrs: Laboratory Results - last 24 hr 06/18/19 06/18/19 06/18/19 Range/Units 13:35 13:39 13:39 WBC 3.94 L (4.0-11.0) K/uL RBC 4.75 (4.50-5.90) M/uL Hgb 14.7 (13.0-17.0) g/dL Hct 42.2 (38.0-50.0) % MCV 88.8 (80.0-98.0) fL MCH 30.9 (27.0-32.0) pg MCHC 34.8 (31.0-37.0) g/dL RDW Std Deviation 42.3 (28.0-62.0) fl RDW Coeff of Brigida 13 (11.0-15.0) % Plt Count 240 (150-400) K/uL MPV 10.10 (7.40-12.00) fL Neut % (Auto) 54.5 (48.0-80.0) % Lymph % (Auto) 34.8 (16.0-40.0) % [place] % (Auto) 8.4 (0.0-15.0) % Eos % (Auto) 1.5 (0.0-7.0) % Baso % (Auto) 0.8 (0.0-1.5) % Neut # (Auto) 2.2 (1.4-5.7) K/uL Lymph # (Auto) 1.4 (0.6-2.4) K/uL [place] # (Auto) 0.3 (0.0-0.8) K/uL Eos # (Auto) 0.1 (0.0-0.7) K/uL Baso # (Auto) 0.0 (0.0-0.1) K/uL INR 1.03 Sodium (136-148) mmol/L Potassium (3.5-5.1) mmol/L Chloride (98-107) mmol/L Carbon Dioxide (21.0-32.0) mmol/L BUN (7.0-18.0) mg/dL Creatinine (0.8-1.3) mg/dL Est Cr Clr Drug Dosing mL/min Estimated GFR (MDRD) ml/min Glucose (74-106) mg/dL POC Glucose 72 (60-110) mg/dL Calcium (8.5-10.1) mg/dL Total Bilirubin (0.2-1.0) mg/dL AST (15-37) IU/L ALT (14-63) IU/L Alkaline Phosphatase (46-116) U/L Troponin I (0.000-0.056) ng/mL Total Protein (6.4-8.2) g/dL Albumin (3.4-5.0) g/dL Globulin (2.6-4.0) g/dL Albumin/Globulin Ratio (0.9-1.6) Lipase (73-393) U/L TSH 3rd Generation (0.36-3.74) uIU/mL Urine Color Urine Appearance Urine pH (5.0-8.0) Ur Specific [place] (1.001-1.035) Urine Protein (NEGATIVE) mg/dL Urine Glucose (UA) (NEGATIVE) mg/dL Urine Ketones (NEGATIVE) mg/dL Urine Occult Blood (NEGATIVE) Urine Nitrite (NEGATIVE) Urine Bilirubin (NEGATIVE) Urine Urobilinogen (<2.0) EU/dL Ur Leukocyte Esterase (NEGATIVE) Urine Opiates Screen (NEGATIVE) Ur Oxycodone Screen (NEGATIVE) Urine Methadone Screen (NEGATIVE) Ur Barbiturates Screen (NEGATIVE) Ur Phencyclidine Scrn (NEGATIVE) Ur Amphetamine Screen (NEGATIVE) U Methamphetamines Scrn (NEGATIVE) U Benzodiazepines Scrn (NEGATIVE) U Cocaine Metab Screen (NEGATIVE) U Marijuana (THC) Screen (NEGATIVE) Ethyl Alcohol mg/dL 06/18/19 06/18/19 06/18/19 Range/Units 13:39 13:39 13:39 WBC (4.0-11.0) K/uL RBC (4.50-5.90) M/uL Hgb (13.0-17.0) g/dL Hct (38.0-50.0) % MCV (80.0-98.0) fL MCH (27.0-32.0) pg MCHC (31.0-37.0) g/dL RDW Std Deviation (28.0-62.0) fl RDW Coeff of Brigida (11.0-15.0) % Plt Count (150-400) K/uL MPV (7.40-12.00) fL Neut % (Auto) (48.0-80.0) % Lymph % (Auto) (16.0-40.0) % [place] % (Auto) (0.0-15.0) % Eos % (Auto) (0.0-7.0) % Baso % (Auto) (0.0-1.5) % Neut # (Auto) (1.4-5.7) K/uL Lymph # (Auto) (0.6-2.4) K/uL [place] # (Auto) (0.0-0.8) K/uL Eos # (Auto) (0.0-0.7) K/uL Baso # (Auto) (0.0-0.1) K/uL INR Sodium 142 (136-148) mmol/L Potassium 3.9 (3.5-5.1) mmol/L Chloride 106 (98-107) mmol/L Carbon Dioxide 28.2 (21.0-32.0) mmol/L BUN 12 (7.0-18.0) mg/dL Creatinine 0.8 (0.8-1.3) mg/dL Est Cr Clr Drug Dosing 130.39 mL/min Estimated GFR (MDRD) > 60.0 ml/min Glucose 89 (74-106) mg/dL POC Glucose (60-110) mg/dL Calcium 9.5 (8.5-10.1) mg/dL Total Bilirubin 0.9 (0.2-1.0) mg/dL AST 27 (15-37) IU/L ALT 44 (14-63) IU/L Alkaline Phosphatase 42 L (46-116) U/L Troponin I < 0.050 (0.000-0.056) ng/mL Total Protein 7.5 (6.4-8.2) g/dL Albumin 4.6 (3.4-5.0) g/dL Globulin 2.9 (2.6-4.0) g/dL Albumin/Globulin Ratio 1.6 (0.9-1.6) Lipase 141 (73-393) U/L TSH 3rd Generation 1.46 (0.36-3.74) uIU/mL Urine Color Urine Appearance Urine pH (5.0-8.0) Ur Specific [place] (1.001-1.035) Urine Protein (NEGATIVE) mg/dL Urine Glucose (UA) (NEGATIVE) mg/dL Urine Ketones (NEGATIVE) mg/dL Urine Occult Blood (NEGATIVE) Urine Nitrite (NEGATIVE) Urine Bilirubin (NEGATIVE) Urine Urobilinogen (<2.0) EU/dL Ur Leukocyte Esterase (NEGATIVE) Urine Opiates Screen (NEGATIVE) Ur Oxycodone Screen (NEGATIVE) Urine Methadone Screen (NEGATIVE) Ur Barbiturates Screen (NEGATIVE) Ur Phencyclidine Scrn (NEGATIVE) Ur Amphetamine Screen (NEGATIVE) U Methamphetamines Scrn (NEGATIVE) U Benzodiazepines Scrn (NEGATIVE) U Cocaine Metab Screen (NEGATIVE) U Marijuana (THC) Screen (NEGATIVE) Ethyl Alcohol 3 mg/dL 06/18/19 06/18/19 Range/Units 13:48 13:48 WBC (4.0-11.0) K/uL RBC (4.50-5.90) M/uL Hgb (13.0-17.0) g/dL Hct (38.0-50.0) % MCV (80.0-98.0) fL MCH (27.0-32.0) pg MCHC (31.0-37.0) g/dL RDW Std Deviation (28.0-62.0) fl RDW Coeff of Brigida (11.0-15.0) % Plt Count (150-400) K/uL MPV (7.40-12.00) fL Neut % (Auto) (48.0-80.0) % Lymph % (Auto) (16.0-40.0) % [place] % (Auto) (0.0-15.0) % Eos % (Auto) (0.0-7.0) % Baso % (Auto) (0.0-1.5) % Neut # (Auto) (1.4-5.7) K/uL Lymph # (Auto) (0.6-2.4) K/uL [place] # (Auto) (0.0-0.8) K/uL Eos # (Auto) (0.0-0.7) K/uL Baso # (Auto) (0.0-0.1) K/uL INR Sodium (136-148) mmol/L Potassium (3.5-5.1) mmol/L Chloride (98-107) mmol/L Carbon Dioxide (21.0-32.0) mmol/L BUN (7.0-18.0) mg/dL Creatinine (0.8-1.3) mg/dL Est Cr Clr Drug Dosing mL/min Estimated GFR (MDRD) ml/min Glucose (74-106) mg/dL POC Glucose (60-110) mg/dL Calcium (8.5-10.1) mg/dL Total Bilirubin (0.2-1.0) mg/dL AST (15-37) IU/L ALT (14-63) IU/L Alkaline Phosphatase (46-116) U/L Troponin I (0.000-0.056) ng/mL Total Protein (6.4-8.2) g/dL Albumin (3.4-5.0) g/dL Globulin (2.6-4.0) g/dL Albumin/Globulin Ratio (0.9-1.6) Lipase (73-393) U/L TSH 3rd Generation (0.36-3.74) uIU/mL Urine Color YELLOW Urine Appearance CLEAR Urine pH 6.5 (5.0-8.0) Ur Specific [place] 1.010 (1.001-1.035) Urine Protein NEGATIVE (NEGATIVE) mg/dL Urine Glucose (UA) NEGATIVE (NEGATIVE) mg/dL Urine Ketones NEGATIVE (NEGATIVE) mg/dL Urine Occult Blood NEGATIVE (NEGATIVE) Urine Nitrite NEGATIVE (NEGATIVE) Urine Bilirubin NEGATIVE (NEGATIVE) Urine Urobilinogen 0.2 (<2.0) EU/dL Ur Leukocyte Esterase NEGATIVE (NEGATIVE) Urine Opiates Screen NEGATIVE (NEGATIVE) Ur Oxycodone Screen NEGATIVE (NEGATIVE) Urine Methadone Screen NEGATIVE (NEGATIVE) Ur Barbiturates Screen NEGATIVE (NEGATIVE) Ur Phencyclidine Scrn NEGATIVE (NEGATIVE) Ur Amphetamine Screen NEGATIVE (NEGATIVE) U Methamphetamines Scrn NEGATIVE (NEGATIVE) U Benzodiazepines Scrn NEGATIVE (NEGATIVE) U Cocaine Metab Screen NEGATIVE (NEGATIVE) U Marijuana (THC) Screen NEGATIVE (NEGATIVE) Ethyl Alcohol mg/dL Result Diagrams: 06/18/19 13:39 06/18/19 13:39 Problem List Initiated/Reviewed/Updated: Yes Orders Last 24hrs: Active Orders 24 hr Category Date Time Status Admission Status [Patient Status] [ADT] Stat ADT 06/18/19 14:56 Active Assess Neurological Status [RC] ASDIRECTED Care 06/18/19 13:45 Active Cardiac Monitoring [RC] . DIRECTED Care 06/18/19 13:25 Active Cardiac Monitoring [RC] . DIRECTED Care 06/18/19 13:45 Active Stroke Education, General [RC] Click to Edit Care 06/18/19 13:45 Active Nitroglycerin [Nitrostat] Med 06/18/19 14:17 Active 0.4 mg SL Q5M PRN Sodium Chloride 0.9% [Normal Saline] Med 06/18/19 13:45 Active 10 ml IV ASDIRECTED PRN Sodium Chloride 0.9% [Saline Flush] Med 06/18/19 13:45 Active 10 ml FLUSH ASDIRECTED PRN Sodium Chloride 0.9% [Saline Flush] Med 06/18/19 13:45 Active 2.5 ml FLUSH ASDIRECTED PRN Peripheral IV Insertion Adult [OM.PC] Stat Oth 08/10/19 13:45 Ordered Peripheral IV Insertion Adult [OM.PC] Stat Oth 06/18/19 13:45 Ordered Resuscitation Status Stat Resus Stat 06/18/19 13:45 Ordered Medication Orders Nitroglycerin (Nitrostat) 0.4 mg SL Q5M PRN PRN Reason: Chest Pain Sodium Chloride (Saline Flush) 10 ml FLUSH ASDIRECTED PRN PRN Reason: Keep Vein Open Last Admin: 06/18/19 14:05 Dose: 10 ml Sodium Chloride (Saline Flush) 2.5 ml FLUSH ASDIRECTED PRN PRN Reason: Keep Vein Open Last Admin: 06/18/19 14:05 Dose: 2.5 ml Sodium Chloride (Normal Saline) 10 ml IV ASDIRECTED PRN PRN Reason: IV Use Assessment/Plan Comment:: Assessment: 1. Chest pain, ACS rule out. 2. Altered mental status, resolved. 3. Past medical history of hypertension and anxiety. Plan: 1. For chest pain, will trend troponins q6h and monitor for any recurrence of chest pain. Initial troponin was negative. CXR also negative. Patient will be on telemetry. 2. Will continue to monitor patient's mental status. As pe ER note, patient briefly responded to questions inappropriately but this resolved quickly. CT head was negative. Will monitor with frequent neuro checks. 3. For past medical history, will continue with home medications.
[2019-06-18] MEDS ORDERED: Acetaminophen 325 MG Tab PO PRN (16:31)
[2019-06-18] MEDS ORDERED: Ondansetron 4 MG/2 ML SDV IVPUSH PRN (16:31)
[2019-06-18] MEDS ORDERED: Ondansetron 4 MG Tab.DIS PO PRN (16:31)
[2019-06-18] MEDS ORDERED: Enoxaparin 40 MG/0.4 ML Syringe SUBCUT SCH (16:45)
[2019-06-18] MEDS ORDERED: Sodium Chloride 0.9% 1,000 ML IV SCH (19:00)
[2019-06-19 06:16] LABS: BLOOD UREA NITROGEN,BUN 10 mg/dL (7.0-18.0); CARBON DIOXIDE,CO2 27.5 mmol/L (21.0-32.0); CHLORIDE,CL 108 mmol/L (98-107); GLUCOSE RANDOM 106 mg/dL (74-106); POTASSIUM,K 4.3 mmol/L (3.5-5.1); SODIUM,NA 145 mmol/L (136-148)
[2019-06-19 07:31] VITALS: BP 146/88; PULSE 60
[2019-06-19] MEDS ORDERED: Iopamidol 755 MG/ML 200 ML Multipack Bottle IVPUSH ONE (08:02)
--- NOTE | 2019-06-19 08:26 | CT ---
Indication. : Chest pain and shortness of breath since yesterday. Technique: Multiple contiguous axial images were obtained from the thoracic inlet through the upper abdomen after the intravenous administration of 50 cc Isovue [address] all [address] scans at this facility use dose modulation, iterative reconstruction, and/or weight-based dosing when appropriate to reduce radiation dose to as low as reasonably achievable. Comparison: Chest x-ray from yesterday. Findings: No pulmonary embolism is identified. Heart is normal in size. The aorta is normal in caliber. There is no evidence of aortic dissection. No mediastinal, hilar, or axillary lymphadenopathy is identified. The lungs are clear. Bibasilar atelectasis or scar is identified. No infiltrate, pleural effusion, or pneumothorax is identified. The visualized portions of the liver, spleen, pancreas, adrenals, and kidneys are normal. No lytic or blastic lesions of the spine are identified. Impression: No pulmonary embolism. No aortic dissection. Please note that all CT scans at this facility use dose modulation, iterative reconstruction, and/or weight-based dosing when appropriate to reduce radiation dose to as low as reasonably achievable. Dictated by Shy Cespedes MD @ Jun 19 2019 8:13AM Signed by Dr. Shy Cespedes @ Jun 19 2019 8:24AM
[2019-06-19] MEDS ORDERED: Lisinopril 10 MG Tab PO SCH (09:00)
--- NOTE | 2019-06-19 09:28 | PCM.DCSUM1 ---
<Stan العلي - Last Filed: 06/19/19 11:24> Discharge Summary - Hospital Course Free Text/Narrative:: 48 y/o male who presented to the ER complaining of chest pain. EKG did not show any acute findings. He was admitted for ACS rule out. Serial troponins were negative. CT chest did not show any pulmonary embolism. His symptoms had resolved overnight. He was advised to keep hydrated and take pantoprazole 40 mg PO daily. - Discharge Data Discharge Date: 06/19/19 Discharge Disposition: Home, Self-Care 01 Condition: Good - Patient Instructions Diet: Regular Diet as Tolerated, Drink 8-10+ Glasses/Day Activity: As Tolerated Notify Provider of: Fever, Increased Pain, Swelling and Redness, Nausea and/or Vomiting - Discharge Plan *PRESCRIPTION DRUG MONITORING PROGRAM REVIEWED*: Not Applicable *COPY OF PRESCRIPTION DRUG MONITORING REPORT IN PATIENT LAURA: Not Applicable Prescriptions/Med Rec: Pantoprazole [ProTONIX] 40 mg PO DAILY 30 Days #30 tab.cr Home Medications: Home Meds Lisinopril 10 mg PO DAILY #10 tablet 08/23/18 [Rx] Pantoprazole [ProTONIX] 40 mg PO DAILY 30 Days #30 tab.cr 06/19/19 [Rx] Patient Handouts: Nonspecific Chest Pain, [id number], Pantoprazole tablets - Discharge Summary/Plan Comment DC Time >30 min.: No - Patient Data Vitals - Most Recent: Last Vital Signs Temp 37.1 C 06/19/19 07:30 Pulse 60 06/19/19 07:30 Resp 16 06/19/19 07:30 BP 146/88 H 06/19/19 08:20 Pulse Ox 98 06/19/19 07:30 Weight - Most Recent: 122.47 kg I&O - Last 24 hours: Intake & Output 06/18/19 06/19/19 06/19/19 22:59 06:59 14:59 Intake Total 220 2120 Output Total 1800 Balance 220 320 Lab Results - Last 24 hrs: Laboratory Results - last 24 hr 06/18/19 06/18/19 06/18/19 Range/Units 13:35 13:39 13:39 WBC 3.94 L (4.0-11.0) K/uL RBC 4.75 (4.50-5.90) M/uL Hgb 14.7 (13.0-17.0) g/dL Hct 42.2 (38.0-50.0) % MCV 88.8 (80.0-98.0) fL MCH 30.9 (27.0-32.0) pg MCHC 34.8 (31.0-37.0) g/dL RDW Std Deviation 42.3 (28.0-62.0) fl RDW Coeff of Brigida 13 (11.0-15.0) % Plt Count 240 (150-400) K/uL MPV 10.10 (7.40-12.00) fL Neut % (Auto) 54.5 (48.0-80.0) % Lymph % (Auto) 34.8 (16.0-40.0) % Union % (Auto) 8.4 (0.0-15.0) % Eos % (Auto) 1.5 (0.0-7.0) % Baso % (Auto) 0.8 (0.0-1.5) % Neut # (Auto) 2.2 (1.4-5.7) K/uL Lymph # (Auto) 1.4 (0.6-2.4) K/uL Union # (Auto) 0.3 (0.0-0.8) K/uL Eos # (Auto) 0.1 (0.0-0.7) K/uL Baso # (Auto) 0.0 (0.0-0.1) K/uL INR 1.03 Sodium (136-148) mmol/L Potassium (3.5-5.1) mmol/L Chloride (98-107) mmol/L Carbon Dioxide (21.0-32.0) mmol/L BUN (7.0-18.0) mg/dL Creatinine (0.8-1.3) mg/dL Est Cr Clr Drug Dosing mL/min Estimated GFR (MDRD) ml/min Glucose (74-106) mg/dL POC Glucose 72 (60-110) mg/dL Calcium (8.5-10.1) mg/dL Total Bilirubin (0.2-1.0) mg/dL AST (15-37) IU/L ALT (14-63) IU/L Alkaline Phosphatase (46-116) U/L Creatine Kinase (26-308) U/L Troponin I (0.000-0.056) ng/mL Total Protein (6.4-8.2) g/dL Albumin (3.4-5.0) g/dL Globulin (2.6-4.0) g/dL Albumin/Globulin Ratio (0.9-1.6) Lipase (73-393) U/L TSH 3rd Generation (0.36-3.74) uIU/mL Urine Color Urine Appearance Urine pH (5.0-8.0) Ur Specific Emerson (1.001-1.035) Urine Protein (NEGATIVE) mg/dL Urine Glucose (UA) (NEGATIVE) mg/dL Urine Ketones (NEGATIVE) mg/dL Urine Occult Blood (NEGATIVE) Urine Nitrite (NEGATIVE) Urine Bilirubin (NEGATIVE) Urine Urobilinogen (<2.0) EU/dL Ur Leukocyte Esterase (NEGATIVE) Urine Opiates Screen (NEGATIVE) Ur Oxycodone Screen (NEGATIVE) Urine Methadone Screen (NEGATIVE) Ur Barbiturates Screen (NEGATIVE) Ur Phencyclidine Scrn (NEGATIVE) Ur Amphetamine Screen (NEGATIVE) U Methamphetamines Scrn (NEGATIVE) U Benzodiazepines Scrn (NEGATIVE) U Cocaine Metab Screen (NEGATIVE) U Marijuana (THC) Screen (NEGATIVE) Ethyl Alcohol mg/dL 06/18/19 06/18/19 06/18/19 Range/Units 13:39 13:39 13:39 WBC (4.0-11.0) K/uL RBC (4.50-5.90) M/uL Hgb (13.0-17.0) g/dL Hct (38.0-50.0) % MCV (80.0-98.0) fL MCH (27.0-32.0) pg MCHC (31.0-37.0) g/dL RDW Std Deviation (28.0-62.0) fl RDW Coeff of Brigida (11.0-15.0) % Plt Count (150-400) K/uL MPV (7.40-12.00) fL Neut % (Auto) (48.0-80.0) % Lymph % (Auto) (16.0-40.0) % Union % (Auto) (0.0-15.0) % Eos % (Auto) (0.0-7.0) % Baso % (Auto) (0.0-1.5) % Neut # (Auto) (1.4-5.7) K/uL Lymph # (Auto) (0.6-2.4) K/uL Union # (Auto) (0.0-0.8) K/uL Eos # (Auto) (0.0-0.7) K/uL Baso # (Auto) (0.0-0.1) K/uL INR Sodium 142 (136-148) mmol/L Potassium 3.9 (3.5-5.1) mmol/L Chloride 106 (98-107) mmol/L Carbon Dioxide 28.2 (21.0-32.0) mmol/L BUN 12 (7.0-18.0) mg/dL Creatinine 0.8 (0.8-1.3) mg/dL Est Cr Clr Drug Dosing 130.39 mL/min Estimated GFR (MDRD) > 60.0 ml/min Glucose 89 (74-106) mg/dL POC Glucose (60-110) mg/dL Calcium 9.5 (8.5-10.1) mg/dL Total Bilirubin 0.9 (0.2-1.0) mg/dL AST 27 (15-37) IU/L ALT 44 (14-63) IU/L Alkaline Phosphatase 42 L (46-116) U/L Creatine Kinase (26-308) U/L Troponin I < 0.050 (0.000-0.056) ng/mL Total Protein 7.5 (6.4-8.2) g/dL Albumin 4.6 (3.4-5.0) g/dL Globulin 2.9 (2.6-4.0) g/dL Albumin/Globulin Ratio 1.6 (0.9-1.6) Lipase 141 (73-393) U/L TSH 3rd Generation 1.46 (0.36-3.74) uIU/mL Urine Color Urine Appearance Urine pH (5.0-8.0) Ur Specific Emerson (1.001-1.035) Urine Protein (NEGATIVE) mg/dL Urine Glucose (UA) (NEGATIVE) mg/dL Urine Ketones (NEGATIVE) mg/dL Urine Occult Blood (NEGATIVE) Urine Nitrite (NEGATIVE) Urine Bilirubin (NEGATIVE) Urine Urobilinogen (<2.0) EU/dL Ur Leukocyte Esterase (NEGATIVE) Urine Opiates Screen (NEGATIVE) Ur Oxycodone Screen (NEGATIVE) Urine Methadone Screen (NEGATIVE) Ur Barbiturates Screen (NEGATIVE) Ur Phencyclidine Scrn (NEGATIVE) Ur Amphetamine Screen (NEGATIVE) U Methamphetamines Scrn (NEGATIVE) U Benzodiazepines Scrn (NEGATIVE) U Cocaine Metab Screen (NEGATIVE) U Marijuana (THC) Screen (NEGATIVE) Ethyl Alcohol 3 mg/dL 06/18/19 06/18/19 06/18/19 Range/Units 13:39 13:48 13:48 WBC (4.0-11.0) K/uL RBC (4.50-5.90) M/uL Hgb (13.0-17.0) g/dL Hct (38.0-50.0) % MCV (80.0-98.0) fL MCH (27.0-32.0) pg MCHC (31.0-37.0) g/dL RDW Std Deviation (28.0-62.0) fl RDW Coeff of Brigida (11.0-15.0) % Plt Count (150-400) K/uL MPV (7.40-12.00) fL Neut % (Auto) (48.0-80.0) % Lymph % (Auto) (16.0-40.0) % Union % (Auto) (0.0-15.0) % Eos % (Auto) (0.0-7.0) % Baso % (Auto) (0.0-1.5) % Neut # (Auto) (1.4-5.7) K/uL Lymph # (Auto) (0.6-2.4) K/uL Union # (Auto) (0.0-0.8) K/uL Eos # (Auto) (0.0-0.7) K/uL Baso # (Auto) (0.0-0.1) K/uL INR Sodium (136-148) mmol/L Potassium (3.5-5.1) mmol/L Chloride (98-107) mmol/L Carbon Dioxide (21.0-32.0) mmol/L BUN (7.0-18.0) mg/dL Creatinine (0.8-1.3) mg/dL Est Cr Clr Drug Dosing mL/min Estimated GFR (MDRD) ml/min Glucose (74-106) mg/dL POC Glucose (60-110) mg/dL Calcium (8.5-10.1) mg/dL Total Bilirubin (0.2-1.0) mg/dL AST (15-37) IU/L ALT (14-63) IU/L Alkaline Phosphatase (46-116) U/L Creatine Kinase 525 H (26-308) U/L Troponin I (0.000-0.056) ng/mL Total Protein (6.4-8.2) g/dL Albumin (3.4-5.0) g/dL Globulin (2.6-4.0) g/dL Albumin/Globulin Ratio (0.9-1.6) Lipase (73-393) U/L TSH 3rd Generation (0.36-3.74) uIU/mL Urine Color YELLOW Urine Appearance CLEAR Urine pH 6.5 (5.0-8.0) Ur Specific Emerson 1.010 (1.001-1.035) Urine Protein NEGATIVE (NEGATIVE) mg/dL Urine Glucose (UA) NEGATIVE (NEGATIVE) mg/dL Urine Ketones NEGATIVE (NEGATIVE) mg/dL Urine Occult Blood NEGATIVE (NEGATIVE) Urine Nitrite NEGATIVE (NEGATIVE) Urine Bilirubin NEGATIVE (NEGATIVE) Urine Urobilinogen 0.2 (<2.0) EU/dL Ur Leukocyte Esterase NEGATIVE (NEGATIVE) Urine Opiates Screen NEGATIVE (NEGATIVE) Ur Oxycodone Screen NEGATIVE (NEGATIVE) Urine Methadone Screen NEGATIVE (NEGATIVE) Ur Barbiturates Screen NEGATIVE (NEGATIVE) Ur Phencyclidine Scrn NEGATIVE (NEGATIVE) Ur Amphetamine Screen NEGATIVE (NEGATIVE) U Methamphetamines Scrn NEGATIVE (NEGATIVE) U Benzodiazepines Scrn NEGATIVE (NEGATIVE) U Cocaine Metab Screen NEGATIVE (NEGATIVE) U Marijuana (THC) Screen NEGATIVE (NEGATIVE) Ethyl Alcohol mg/dL 06/18/19 06/19/19 06/19/19 Range/Units 19:57 01:46 05:51 WBC 3.75 L (4.0-11.0) K/uL RBC 4.92 (4.50-5.90) M/uL Hgb 15.2 (13.0-17.0) g/dL Hct 44.2 (38.0-50.0) % MCV 89.8 (80.0-98.0) fL MCH 30.9 (27.0-32.0) pg MCHC 34.4 (31.0-37.0) g/dL RDW Std Deviation 43.1 (28.0-62.0) fl RDW Coeff of Brigida 13 (11.0-15.0) % Plt Count 223 (150-400) K/uL MPV 9.90 (7.40-12.00) fL Neut % (Auto) 45.6 L (48.0-80.0) % Lymph % (Auto) 38.4 (16.0-40.0) % Union % (Auto) 11.2 (0.0-15.0) % Eos % (Auto) 4.0 (0.0-7.0) % Baso % (Auto) 0.8 (0.0-1.5) % Neut # (Auto) 1.7 (1.4-5.7) K/uL Lymph # (Auto) 1.4 (0.6-2.4) K/uL Union # (Auto) 0.4 (0.0-0.8) K/uL Eos # (Auto) 0.2 (0.0-0.7) K/uL Baso # (Auto) 0.0 (0.0-0.1) K/uL INR Sodium (136-148) mmol/L Potassium (3.5-5.1) mmol/L Chloride (98-107) mmol/L Carbon Dioxide (21.0-32.0) mmol/L BUN (7.0-18.0) mg/dL Creatinine (0.8-1.3) mg/dL Est Cr Clr Drug Dosing mL/min Estimated GFR (MDRD) ml/min Glucose (74-106) mg/dL POC Glucose (60-110) mg/dL Calcium (8.5-10.1) mg/dL Total Bilirubin (0.2-1.0) mg/dL AST (15-37) IU/L ALT (14-63) IU/L Alkaline Phosphatase (46-116) U/L Creatine Kinase (26-308) U/L Troponin I < 0.050 < 0.050 (0.000-0.056) ng/mL Total Protein (6.4-8.2) g/dL Albumin (3.4-5.0) g/dL Globulin (2.6-4.0) g/dL Albumin/Globulin Ratio (0.9-1.6) Lipase (73-393) U/L TSH 3rd Generation (0.36-3.74) uIU/mL Urine Color Urine Appearance Urine pH (5.0-8.0) Ur Specific Emerson (1.001-1.035) Urine Protein (NEGATIVE) mg/dL Urine Glucose (UA) (NEGATIVE) mg/dL Urine Ketones (NEGATIVE) mg/dL Urine Occult Blood (NEGATIVE) Urine Nitrite (NEGATIVE) Urine Bilirubin (NEGATIVE) Urine Urobilinogen (<2.0) EU/dL Ur Leukocyte Esterase (NEGATIVE) Urine Opiates Screen (NEGATIVE) Ur Oxycodone Screen (NEGATIVE) Urine Methadone Screen (NEGATIVE) Ur Barbiturates Screen (NEGATIVE) Ur Phencyclidine Scrn (NEGATIVE) Ur Amphetamine Screen (NEGATIVE) U Methamphetamines Scrn (NEGATIVE) U Benzodiazepines Scrn (NEGATIVE) U Cocaine Metab Screen (NEGATIVE) U Marijuana (THC) Screen (NEGATIVE) Ethyl Alcohol mg/dL 06/19/19 06/19/19 Range/Units 05:51 05:51 WBC (4.0-11.0) K/uL RBC (4.50-5.90) M/uL Hgb (13.0-17.0) g/dL Hct (38.0-50.0) % MCV (80.0-98.0) fL MCH (27.0-32.0) pg MCHC (31.0-37.0) g/dL RDW Std Deviation (28.0-62.0) fl RDW Coeff of Brigida (11.0-15.0) % Plt Count (150-400) K/uL MPV (7.40-12.00) fL Neut % (Auto) (48.0-80.0) % Lymph % (Auto) (16.0-40.0) % Union % (Auto) (0.0-15.0) % Eos % (Auto) (0.0-7.0) % Baso % (Auto) (0.0-1.5) % Neut # (Auto) (1.4-5.7) K/uL Lymph # (Auto) (0.6-2.4) K/uL Union # (Auto) (0.0-0.8) K/uL Eos # (Auto) (0.0-0.7) K/uL Baso # (Auto) (0.0-0.1) K/uL INR Sodium 145 (136-148) mmol/L Potassium 4.3 (3.5-5.1) mmol/L Chloride 108 H (98-107) mmol/L Carbon Dioxide 27.5 (21.0-32.0) mmol/L BUN 10 (7.0-18.0) mg/dL Creatinine 0.7 L (0.8-1.3) mg/dL Est Cr Clr Drug Dosing 149.02 mL/min Estimated GFR (MDRD) > 60.0 ml/min Glucose 106 (74-106) mg/dL POC Glucose (60-110) mg/dL Calcium 9.1 (8.5-10.1) mg/dL Total Bilirubin (0.2-1.0) mg/dL AST (15-37) IU/L ALT (14-63) IU/L Alkaline Phosphatase (46-116) U/L Creatine Kinase 313 H (26-308) U/L Troponin I (0.000-0.056) ng/mL Total Protein (6.4-8.2) g/dL Albumin (3.4-5.0) g/dL Globulin (2.6-4.0) g/dL Albumin/Globulin Ratio (0.9-1.6) Lipase (73-393) U/L TSH 3rd Generation (0.36-3.74) uIU/mL Urine Color Urine Appearance Urine pH (5.0-8.0) Ur Specific Emerson (1.001-1.035) Urine Protein (NEGATIVE) mg/dL Urine Glucose (UA) (NEGATIVE) mg/dL Urine Ketones (NEGATIVE) mg/dL Urine Occult Blood (NEGATIVE) Urine Nitrite (NEGATIVE) Urine Bilirubin (NEGATIVE) Urine Urobilinogen (<2.0) EU/dL Ur Leukocyte Esterase (NEGATIVE) Urine Opiates Screen (NEGATIVE) Ur Oxycodone Screen (NEGATIVE) Urine Methadone Screen (NEGATIVE) Ur Barbiturates Screen (NEGATIVE) Ur Phencyclidine Scrn (NEGATIVE) Ur Amphetamine Screen (NEGATIVE) U Methamphetamines Scrn (NEGATIVE) U Benzodiazepines Scrn (NEGATIVE) U Cocaine Metab Screen (NEGATIVE) U Marijuana (THC) Screen (NEGATIVE) Ethyl Alcohol mg/dL Med Orders - Current: Current Medications Acetaminophen (Tylenol) 650 mg PO Q4H PRN PRN Reason: Pain (Mild 1-3)/fever Last Admin: 06/18/19 17:30 Dose: 650 mg Enoxaparin Sodium (Lovenox) 40 mg SUBCUT Q24H [facility] Last Admin: 06/18/19 17:21 Dose: 40 mg Sodium Chloride (Normal Saline) 1,000 mls @ 125 mls/hr IV STAT [facility] Last Admin: 06/19/19 00:26 Dose: 125 mls/hr Lisinopril (Prinivil) 10 mg PO DAILY [facility] Last Admin: 06/19/19 08:20 Dose: 10 mg Nitroglycerin (Nitrostat) 0.4 mg SL Q5M PRN PRN Reason: Chest Pain Ondansetron HCl (Zofran Odt) 4 mg PO Q4H PRN PRN Reason: nausea, able to take PO Ondansetron HCl (Zofran) 4 mg IVPUSH Q4H PRN PRN Reason: Nausea Sodium Chloride (Saline Flush) 10 ml FLUSH ASDIRECTED PRN PRN Reason: Keep Vein Open Last Admin: 06/18/19 14:05 Dose: 10 ml Sodium Chloride (Saline Flush) 2.5 ml FLUSH ASDIRECTED PRN PRN Reason: Keep Vein Open Last Admin: 06/18/19 14:05 Dose: 2.5 ml Sodium Chloride (Normal Saline) 10 ml IV ASDIRECTED PRN PRN Reason: IV Use Discontinued Medications Aspirin (Aspirin) 324 mg PO ONETIME ONE Stop: 06/18/19 14:16 Last Admin: 06/18/19 14:27 Dose: 324 mg Sodium Chloride (Normal Saline) 1,000 mls @ 999 mls/hr IV BOLUS ONE Stop: 06/18/19 14:25 Last Admin: 06/18/19 14:03 Dose: 999 mls/hr Sodium Chloride (Normal Saline) 1,000 mls @ 999 mls/hr IV BOLUS ONE Stop: 06/18/19 14:45 Last Admin: 06/18/19 14:06 Dose: Not Given Sodium Chloride (Normal Saline) 1,000 mls @ 125 mls/hr IV STAT ONE Stop: 06/19/19 00:40 Last Admin: 06/18/19 17:19 Dose: 125 mls/hr Iopamidol (Isovue Multipack-370 (76%)) 50 ml IVPUSH ONETIME ONE Stop: 06/19/19 08:03 Last Admin: 06/19/19 08:02 Dose: 50 ml <Pedro Segovia - Last Filed: 06/20/19 19:43> - Patient Data Vitals - Most Recent: Last Vital Signs Temp 37.1 C 06/19/19 07:30 Pulse 60 06/19/19 07:30 Resp 16 06/19/19 07:30 BP 146/88 H 06/19/19 08:20 Pulse Ox 98 06/19/19 07:30 Med Orders - Current: Current Medications Discontinued Medications Acetaminophen (Tylenol) 650 mg PO Q4H PRN PRN Reason: Pain (Mild 1-3)/fever Last Admin: 06/18/19 17:30 Dose: 650 mg Aspirin (Aspirin) 324 mg PO ONETIME ONE Stop: 06/18/19 14:16 Last Admin: 06/18/19 14:27 Dose: 324 mg Enoxaparin Sodium (Lovenox) 40 mg SUBCUT Q24H [facility] Last Admin: 06/18/19 17:21 Dose: 40 mg Sodium Chloride (Normal Saline) 1,000 mls @ 999 mls/hr IV BOLUS ONE Stop: 06/18/19 14:25 Last Admin: 06/18/19 14:03 Dose: 999 mls/hr Sodium Chloride (Normal Saline) 1,000 mls @ 999 mls/hr IV BOLUS ONE Stop: 06/18/19 14:45 Last Admin: 06/18/19 14:06 Dose: Not Given Sodium Chloride (Normal Saline) 1,000 mls @ 125 mls/hr IV STAT ONE Stop: 06/19/19 00:40 Last Admin: 06/18/19 17:19 Dose: 125 mls/hr Sodium Chloride (Normal Saline) 1,000 mls @ 125 mls/hr IV STAT [facility] Last Admin: 06/19/19 00:26 Dose: 125 mls/hr Iopamidol (Isovue Multipack-370 (76%)) 50 ml IVPUSH ONETIME ONE Stop: 06/19/19 08:03 Last Admin: 06/19/19 08:02 Dose: 50 ml Lisinopril (Prinivil) 10 mg PO DAILY [facility] Last Admin: 06/19/19 08:20 Dose: 10 mg Nitroglycerin (Nitrostat) 0.4 mg SL Q5M PRN PRN Reason: Chest Pain Ondansetron HCl (Zofran Odt) 4 mg PO Q4H PRN PRN Reason: nausea, able to take PO Ondansetron HCl (Zofran) 4 mg IVPUSH Q4H PRN PRN Reason: Nausea Sodium Chloride (Saline Flush) 10 ml FLUSH ASDIRECTED PRN PRN Reason: Keep Vein Open Last Admin: 06/18/19 14:05 Dose: 10 ml Sodium Chloride (Saline Flush) 2.5 ml FLUSH ASDIRECTED PRN PRN Reason: Keep Vein Open Last Admin: 06/18/19 14:05 Dose: 2.5 ml Sodium Chloride (Normal Saline) 10 ml IV ASDIRECTED PRN PRN Reason: IV Use - Free Text/Narrative Note: I have evaluated the patient. I have discussed findings and treatment plan with resident. I agree with the assessment and plan outlined in the following note.
== END 2019-06-19 11:05 | disposition home or self-care (01) ==
LOC: MW.ED 13:24 → MW.MS 15:23
PROVIDERS: ADMIT Internal Medicine; ATTEND Internal Medicine
DX: R07.2 Precordial pain (principal); R42 Dizziness and giddiness; R11.0 Nausea; R06.02 Shortness of breath; R23.2 Flushing; I10 Essential (primary) hypertension; R41.82 Altered mental status, unspecified; E66.9 Obesity, unspecified; Z68.35 Body mass index [BMI] 35.0-35.9, adult
CPT/HCPCS: 36415; 70450; 71045; 71275; 80048; 80053; 80305; 81003; 82550; 82962; 83690; 84443; 84484; 85025; 85610; 93005; 96360; 96361; 96372; 99285; A9270; G0378; G0480; J1650; J7040; Q9967

== ENCOUNTER 2019-07-31 20:43 | Emergency (ER) | payer BC ==
[2019-07-31] MEDS ORDERED: Ondansetron 4 MG/2 ML SDV IVPUSH ONE ×2 (21:00→23:19)
[2019-07-31] MEDS ORDERED: Sodium Chloride 0.9% 10 ML Syringe FLUSH PRN (21:00)
[2019-07-31] MEDS ORDERED: Sodium Chloride 0.9% 1,000 ML IV ONE ×2 (21:00→23:07)
[2019-07-31] MEDS ORDERED: Sodium Chloride 0.9% 2.5 ML Syringe FLUSH PRN (21:00)
[2019-07-31] MEDS ORDERED: Morphine 2 MG/ML Syringe IVPUSH ONE (21:00)
[2019-07-31] MEDS ORDERED: Ketorolac 30 MG/ML SDV IVPUSH ONE (21:00)
--- NOTE | 2019-07-31 21:03 | EDM.PDOC ---
ED HPI GENERAL MEDICAL PROBLEM - General Chief Complaint: Abdominal Pain Stated Complaint: PAIN IN RIGHT SIDE Time Seen by Provider: 07/31/19 20:52 - History of Present Illness INITIAL COMMENTS - FREE TEXT/NARRATIVE: HISTORY AND PHYSICAL: History of present illness: The patient is a 48-year-old male with a history of hypertension who has no GI or history and presents with 3 days of right-sided abdominal pain associated with diarrhea 2 times a day. The patient says he has been hydrating and eating but has not had much of an appetite and he has no fever chills chest pain shortness of breath flank pain or urinary issues. He has no testicular pain or swelling. The patient says that initially the discomfort was in the right lower quadrant and now it has spread to the whole right side of his abdomen and there is no left-sided pain. The pain and the diarrhea started at the same time. He has no history of abdominal surgical history is no trauma. The patient does not take any medication prior to coming here on my interview with him. Review of systems: As per history of present illness and below otherwise all systems reviewed and negative. Past medical history: As per history of present illness and as reviewed below otherwise noncontributory. Surgical history: As per history of present illness and as reviewed below otherwise noncontributory. Social history: No reported history of drug or alcohol abuse. Family history: As per history of present illness and as reviewed below otherwise noncontributory. Physical exam: General: Well-developed well-nourished man who is nontoxic and vital signs are noted by me HEENT: Atraumatic, normocephalic, pupils reactive, negative for conjunctival pallor or scleral icterus, mucous membranes moist, throat clear, neck supple, nontender, trachea midline. Lungs: Clear to auscultation, breath sounds equal bilaterally, chest nontender. Heart: S1S2, regular rate and rhythm no overt murmurs Abdomen: Soft, nondistended, bowel sounds are hypoactive and there is no tympany on percussion but there is voluntary guarding on the right side without involuntary guarding or rebound. On outpatient there is tenderness throughout the right side of the abdomen both right upper mid and right lower quadrant tenderness. Negative for masses or hepatosplenomegaly. Negative for costovertebral tenderness. Pelvis: Stable nontender. Genitourinary: Deferred. Rectal: Deferred. Extremities: Atraumatic, negative for cords or calf pain. Neurovascular unremarkable. Neuro: Awake, alert, oriented. Cranial nerves II through XII unremarkable. Cerebellum unremarkable. Motor and sensory unremarkable throughout. Exam nonfocal. Diagnostics: CBC CMP lipase lactic acid UA with reflex CT scan of the abdomen and pelvis Type and cross for 2 units INR repeat H&H Therapeutics: IV fluids Zofran Toradol morphine Levaquin and Flagyl 2305: I discussed the CT scan with Dr. Olivas the radiologist and as I was hanging up with him I was called to the room because the patient went to the bathroom and had a large output of bright red blood per rectum with some clots that filled the toilet bowl. He was a little bit lightheaded and his blood pressure was 104/59 with a heart rate of 69. His abdomen is unchanged in exam and he is not bleeding just laying in the bed. I've ordered a type and screen as well as a repeat hemoglobin and hematocrit and an INR. Dr. Pemberton our surgeon will be notified to perform a consult here in the ED but she is currently doing an appendix and will come here after surgery is completed 2318: In light of the patient's presentation and the likelihood that we will not be able to keep the patient here pending Dr. Pemberton's consult this case was discussed with the ER physician at [facility], Dr. Fuller. He would like to be notified of an update and what Dr. Pemberton thinks that this patient may need as far as consultation i.e. general surgery interventional or vascular surgery as he would like them to be in the loop with this transfer. The patient was made aware of his CT scan findings and the reason behind the bleeding in the toilet bowl. We will continue to monitor him. He wasn't vomiting after this event so he was given more Zofran and another bolus of IV fluid. 2335: I did discuss this case with Dr. Pemberton while she was in the operating room and she will come and do a quick informal consult she agrees that the patient does need transfer as this patient will likely need interventional radiology and general surgery care and equipment that we do not have here area please also note that the patient's initial hemoglobin was 15.2 and the repeat was 13.5. I will get 2 units of blood available for the flight team to take with them and utilize as needed for hypotension or any new bleeding. The patient 's initial systolic blood pressure was 154 and then after some pain medications went to 131 but after the large bloody bowel movement systolic blood pressure dropped to 101 and is holding there but there is never been a change of heart rate. I rediscussed the case with Dr. Fuller at 2338 and he is aware of Dr. Pemberton's input and that the patient should be flown as at any point he can rebleed or continued bleeding and become hemodynamically unstable. He accepts the patient for transfer. The patient is aware of all these conversations and the need for transfer and the mode of transfer that is necessary and he is agreeable. 2347: Dr. Pemberton is here and has reviewed the CT scan and confirms plan. She is currently seeing the patient. We are waiting flight team arrival. We'll continue to monitor the patient's hemodynamic status and intervene as needed with blood critical care time excluding procedures:31min Impression: Right-sided abdominal pain, cecal diverticulitis with intraluminal hemorrhage Definitive disposition and diagnosis as appropriate pending reevaluation and review of above. abdomen Pain Score (Numeric/FACES): 9 - Related Data Allergies Allergy/AdvReac Type Severity Reaction Status Date / Time No Known Allergies Allergy Verified 07/31/19 20:53 Home Meds: Home Meds Anxiety Med 07/31/19 [History] Lisinopril 20 mg PO DAILY 07/31/19 [History] Past Medical History HEENT History: Reports: None Other HEENT History: wears contacts Cardiovascular History: Reports: Hypertension Respiratory History: Reports: None Gastrointestinal History: Reports: None Genitourinary History: Reports: None Musculoskeletal History: Reports: Back Pain, Chronic Neurological History: Reports: None Psychiatric History: Reports: Anxiety Endocrine/Metabolic History: Reports: Obesity/BMI 30+ Hematologic History: Reports: None Immunologic History: Reports: None Oncologic (Cancer) History: Reports: None Dermatologic History: Reports: None - Infectious Disease History Infectious Disease History: Reports: Chicken Pox - Past Surgical History Head Surgeries/Procedures: Reports: None HEENT Surgical History: Reports: Cataract Surgery, Eye Surgery Cardiovascular Surgical History: Reports: None Respiratory Surgical History: Reports: None GI Surgical History: Reports: None Male Surgical History: Reports: None Endocrine Surgical History: Reports: None Neurological Surgical History: Reports: None Musculoskeletal Surgical History: Reports: None Oncologic Surgical History: Reports: None Dermatological Surgical History: Reports: None Social & Family History - Family History Family Medical History: Noncontributory Cardiac: Reports: Hypertension - Tobacco Use Smoking Status *Q: Never Smoker Second Hand Smoke Exposure: No - Caffeine Use Caffeine Use: Reports: None - Recreational Drug Use Recreational Drug Use: No ED ROS GENERAL - Review of Systems Review Of Systems: ROS reveals no pertinent complaints other than HPI. ED EXAM, GENERAL - Physical Exam Exam: See Below (See dictation) Course - Vital Signs Last Recorded V/S: Last Vital Signs Temp 36.2 C 07/31/19 23:15 Pulse 82 07/31/19 23:37 Resp 14 07/31/19 23:37 BP 123/63 07/31/19 23:37 Pulse Ox 95 07/31/19 23:37 - Orders/Labs/Meds Orders: Active Orders 24 hr Category Date Time Status Notify Provider Consults [RC] ASDIRECTED Care 07/31/19 23:25 Active Consult to Physician [CONS] Stat Cons 07/31/19 23:25 Active RED BLOOD CELLS LP [BBK] Stat Lab 07/31/19 21:10 Received TYPE AND SCREEN [BBK] Stat Lab 07/31/19 21:10 Received Levofloxacin/Dextrose 5%-Water [Levaquin in D5W 500 MG/ Med 07/31/19 23:08 Active 100 ML] 500 mg Premix Bag 1 bag IV ONETIME Sodium Chloride 0.9% [Normal Saline] 1,000 ml Med 07/31/19 23:07 Active IV STAT Sodium Chloride 0.9% [Saline Flush] Med 07/31/19 21:00 Active 10 ml FLUSH ASDIRECTED PRN Sodium Chloride 0.9% [Saline Flush] Med 07/31/19 21:00 Active 2.5 ml FLUSH ASDIRECTED PRN metroNIDAZOLE/Normal Saline [Flagyl 500 MG in NS 100 ML Med 07/31/19 23:08 Active ] 500 mg Premix Bag 1 bag IV ONETIME Saline Lock Insert [OM.PC] Stat Oth 07/31/19 20:59 Ordered Transfuse Red Blood Cells [COMM] Stat Oth 07/31/19 23:27 Ordered Medication Orders Sodium Chloride (Normal Saline) 1,000 mls @ 999 mls/hr IV STAT ONE Stop: 08/01/19 00:07 Last Admin: 07/31/19 23:16 Dose: 999 mls/hr Levofloxacin/Dextrose 500 mg/ (Premix) 100 mls @ 100 mls/hr IV ONETIME ONE Stop: 08/01/19 00:07 Last Admin: 07/31/19 23:31 Dose: 100 mls/hr Metronidazole 500 mg/ Premix 100 mls @ 100 mls/hr IV ONETIME ONE Stop: 08/01/19 00:07 Last Admin: 07/31/19 23:17 Dose: 100 mls/hr Sodium Chloride (Saline Flush) 10 ml FLUSH ASDIRECTED PRN PRN Reason: Keep Vein Open Sodium Chloride (Saline Flush) 2.5 ml FLUSH ASDIRECTED PRN PRN Reason: Keep Vein Open Labs: Laboratory Tests 07/31/19 07/31/19 07/31/19 Range/Units 21:00 21:00 21:00 WBC 9.20 (4.0-11.0) K/uL RBC 4.94 (4.50-5.90) M/uL Hgb 15.2 (13.0-17.0) g/dL Hct 44.5 (38.0-50.0) % MCV 90.1 (80.0-98.0) fL MCH 30.8 (27.0-32.0) pg MCHC 34.2 (31.0-37.0) g/dL RDW Std Deviation 43.8 (28.0-62.0) fl RDW Coeff of Brigida 13 (11.0-15.0) % Plt Count 252 (150-400) K/uL MPV 10.10 (7.40-12.00) fL Neut % (Auto) 67.9 (48.0-80.0) % Lymph % (Auto) 23.6 (16.0-40.0) % Armstrong % (Auto) 6.5 (0.0-15.0) % Eos % (Auto) 1.5 (0.0-7.0) % Baso % (Auto) 0.5 (0.0-1.5) % Neut # (Auto) 6.2 H (1.4-5.7) K/uL Lymph # (Auto) 2.2 (0.6-2.4) K/uL Armstrong # (Auto) 0.6 (0.0-0.8) K/uL Eos # (Auto) 0.1 (0.0-0.7) K/uL Baso # (Auto) 0.1 (0.0-0.1) K/uL Nucleated RBC % 0.0 /100WBC Nucleated RBCs # 0 K/uL INR Lactate 0.6 (0.20-2.00) mmol/L Sodium 140 (136-148) mmol/L Potassium 4.1 (3.5-5.1) mmol/L Chloride 104 (98-107) mmol/L Carbon Dioxide 26.5 (21.0-32.0) mmol/L BUN 21 H (7.0-18.0) mg/dL Creatinine 1.1 (0.8-1.3) mg/dL Est Cr Clr Drug Dosing 97.56 mL/min Estimated GFR (MDRD) > 60.0 ml/min Glucose 92 (74-106) mg/dL Calcium 9.4 (8.5-10.1) mg/dL Total Bilirubin 0.4 (0.2-1.0) mg/dL AST 18 (15-37) IU/L ALT 26 (14-63) IU/L Alkaline Phosphatase 50 (46-116) U/L Total Protein 7.6 (6.4-8.2) g/dL Albumin 4.1 (3.4-5.0) g/dL Globulin 3.5 (2.6-4.0) g/dL Albumin/Globulin Ratio 1.2 (0.9-1.6) Lipase 228 (73-393) U/L Urine Color Urine Appearance Urine pH (5.0-8.0) Ur Specific Loraine (1.001-1.035) Urine Protein (NEGATIVE) mg/dL Urine Glucose (UA) (NEGATIVE) mg/dL Urine Ketones (NEGATIVE) mg/dL Urine Occult Blood (NEGATIVE) Urine Nitrite (NEGATIVE) Urine Bilirubin (NEGATIVE) Urine Urobilinogen (<2.0) EU/dL Ur Leukocyte Esterase (NEGATIVE) 07/31/19 07/31/19 07/31/19 Range/Units 21:10 21:10 21:40 WBC (4.0-11.0) K/uL RBC (4.50-5.90) M/uL Hgb 13.5 (13.0-17.0) g/dL Hct 40.1 (38.0-50.0) % MCV (80.0-98.0) fL MCH (27.0-32.0) pg MCHC (31.0-37.0) g/dL RDW Std Deviation (28.0-62.0) fl RDW Coeff of Brigida (11.0-15.0) % Plt Count (150-400) K/uL MPV (7.40-12.00) fL Neut % (Auto) (48.0-80.0) % Lymph % (Auto) (16.0-40.0) % Armstrong % (Auto) (0.0-15.0) % Eos % (Auto) (0.0-7.0) % Baso % (Auto) (0.0-1.5) % Neut # (Auto) (1.4-5.7) K/uL Lymph # (Auto) (0.6-2.4) K/uL Armstrong # (Auto) (0.0-0.8) K/uL Eos # (Auto) (0.0-0.7) K/uL Baso # (Auto) (0.0-0.1) K/uL Nucleated RBC % /100WBC Nucleated RBCs # K/uL INR 0.99 Lactate (0.20-2.00) mmol/L Sodium (136-148) mmol/L Potassium (3.5-5.1) mmol/L Chloride (98-107) mmol/L Carbon Dioxide (21.0-32.0) mmol/L BUN (7.0-18.0) mg/dL Creatinine (0.8-1.3) mg/dL Est Cr Clr Drug Dosing mL/min Estimated GFR (MDRD) ml/min Glucose (74-106) mg/dL Calcium (8.5-10.1) mg/dL Total Bilirubin (0.2-1.0) mg/dL AST (15-37) IU/L ALT (14-63) IU/L Alkaline Phosphatase (46-116) U/L Total Protein (6.4-8.2) g/dL Albumin (3.4-5.0) g/dL Globulin (2.6-4.0) g/dL Albumin/Globulin Ratio (0.9-1.6) Lipase (73-393) U/L Urine Color YELLOW Urine Appearance CLEAR Urine pH 6.0 (5.0-8.0) Ur Specific Loraine >= 1.030 (1.001-1.035) Urine Protein NEGATIVE (NEGATIVE) mg/dL Urine Glucose (UA) NEGATIVE (NEGATIVE) mg/dL Urine Ketones NEGATIVE (NEGATIVE) mg/dL Urine Occult Blood NEGATIVE (NEGATIVE) Urine Nitrite NEGATIVE (NEGATIVE) Urine Bilirubin NEGATIVE (NEGATIVE) Urine Urobilinogen 0.2 (<2.0) EU/dL Ur Leukocyte Esterase NEGATIVE (NEGATIVE) Meds: Medications Generic Name Dose Route Start Last Admin Trade Name Freq PRN Reason Stop Dose Admin Sodium Chloride 1,000 mls @ 999 mls/hr 07/31/19 23:07 07/31/19 23:16 Normal Saline IV 08/01/19 00:07 999 mls/hr STAT ONE Administration Levofloxacin/Dextrose 500 mg/ 100 mls @ 100 mls/hr 07/31/19 23:08 07/31/19 23 :31 Premix IV 08/01/19 00:07 100 mls/hr ONETIME ONE Administration Metronidazole 500 mg/ Premix 100 mls @ 100 mls/hr 07/31/19 23:08 07/31/19 23: 17 IV 08/01/19 00:07 100 mls/hr ONETIME ONE Administration Sodium Chloride 10 ml 07/31/19 21:00 Saline Flush FLUSH ASDIRECTED PRN Keep Vein Open Sodium Chloride 2.5 ml 07/31/19 21:00 Saline Flush FLUSH ASDIRECTED PRN Keep Vein Open Discontinued Medications Generic Name Dose Route Start Last Admin Trade Name Freq PRN Reason Stop Dose Admin Fentanyl 50 mcg 07/31/19 23:32 Sublimaze IVPUSH 07/31/19 23:33 ONETIME ONE Sodium Chloride 1,000 mls @ 999 mls/hr 07/31/19 21:00 07/31/19 21:04 Normal Saline IV 07/31/19 22:00 999 mls/hr STAT ONE Administration Iopamidol 100 ml 07/31/19 22:14 07/31/19 22:14 Isovue Multipack-370 (76%) IVPUSH 07/31/19 22:15 100 ml ONETIME STA Administration Ketorolac Tromethamine 30 mg 07/31/19 21:00 07/31/19 21:09 Toradol IVPUSH 07/31/19 21:01 30 mg ONETIME ONE Administration Morphine Sulfate 4 mg 07/31/19 21:00 07/31/19 21:11 Morphine IVPUSH 07/31/19 21:01 4 mg ONETIME ONE Administration Ondansetron HCl 4 mg 07/31/19 21:00 07/31/19 21:07 Zofran IVPUSH 07/31/19 21:01 4 mg ONETIME ONE Administration Ondansetron HCl Confirm 07/31/19 23:13 07/31/19 23:29 Zofran Administered 07/31/19 23:14 Not Given Dose 8 mg .ROUTE .STK-MED ONE Ondansetron HCl 8 mg 07/31/19 23:19 07/31/19 23:20 Zofran IVPUSH 07/31/19 23:20 8 mg ONETIME ONE Administration Departure - Departure Time of Disposition: 23:46 Disposition: DC/Tfer to Acute Hospital 02 Condition: Fair Clinical Impression: Acute diverticulitis of intestine, Lower GI bleeding - Discharge Information Referrals: PCP,None [Primary Care Provider] - Forms: ED Department Discharge - My Orders Last 24 Hours: My Active Orders 07/31/19 20:59 Saline Lock Insert [OM.PC] Stat 07/31/19 21:00 Sodium Chloride 0.9% [Saline Flush] 10 ml FLUSH ASDIRECTED PRN Sodium Chloride 0.9% [Saline Flush] 2.5 ml FLUSH ASDIRECTED PRN 07/31/19 21:10 RED BLOOD CELLS LP [BBK] Stat TYPE AND SCREEN [BBK] Stat 07/31/19 23:07 Sodium Chloride 0.9% [Normal Saline] 1,000 ml IV STAT 07/31/19 23:08 Levofloxacin/Dextrose 5%-Water [Levaquin in D5W 500 MG/100 ML] 500 mg Premix Bag 1 bag IV ONETIME metroNIDAZOLE/Normal Saline [Flagyl 500 MG in NS 100 ML] 500 mg Premix Bag 1 bag IV ONETIME 07/31/19 23:25 Notify Provider Consults [RC] ASDIRECTED Consult to Physician [CONS] Stat 07/31/19 23:27 Transfuse Red Blood Cells [COMM] Stat - Assessment/Plan Last 24 Hours: My Active Orders 07/31/19 20:59 Saline Lock Insert [OM.PC] Stat 07/31/19 21:00 Sodium Chloride 0.9% [Saline Flush] 10 ml FLUSH ASDIRECTED PRN Sodium Chloride 0.9% [Saline Flush] 2.5 ml FLUSH ASDIRECTED PRN 07/31/19 21:10 RED BLOOD CELLS LP [BBK] Stat TYPE AND SCREEN [BBK] Stat 07/31/19 23:07 Sodium Chloride 0.9% [Normal Saline] 1,000 ml IV STAT 07/31/19 23:08 Levofloxacin/Dextrose 5%-Water [Levaquin in D5W 500 MG/100 ML] 500 mg Premix Bag 1 bag IV ONETIME metroNIDAZOLE/Normal Saline [Flagyl 500 MG in NS 100 ML] 500 mg Premix Bag 1 bag IV ONETIME 07/31/19 23:25 Notify Provider Consults [RC] ASDIRECTED Consult to Physician [CONS] Stat 07/31/19 23:27 Transfuse Red Blood Cells [COMM] Stat
[2019-07-31 21:26] LABS: BLOOD UREA NITROGEN,BUN 21 mg/dL (7.0-18.0); CARBON DIOXIDE,CO2 26.5 mmol/L (21.0-32.0); CHLORIDE,CL 104 mmol/L (98-107); GLUCOSE RANDOM 92 mg/dL (74-106); LIPASE 228 U/L (73-393); POTASSIUM,K 4.1 mmol/L (3.5-5.1); SODIUM,NA 140 mmol/L (136-148)
[2019-07-31] MEDS ORDERED: Iopamidol 755 MG/ML 500 ML Multipack Bottle IVPUSH STA (22:14)
[2019-07-31] MEDS ORDERED: Levofloxacin/Dextrose 5%-Water 500 MG in Premix Bag 1 BAG IV ONE (23:08)
[2019-07-31] MEDS ORDERED: metroNIDAZOLE/Normal Saline 500 MG in Premix Bag 1 BAG IV ONE (23:08)
[2019-07-31] MEDS ORDERED: Ondansetron 4 MG/2 ML SDV ONE (23:13)
--- NOTE | 2019-07-31 23:21 | CT ---
INDICATION: RLQ pain. CT ABDOMEN AND PELVIS WITH CONTRAST TECHNIQUE: Multidetector CT imaging was performed through the abdomen and pelvis following intravenous contrast administration using 100 mL Isovue 370. Coronal and sagittal reconstructions were generated. COMPARISON: 11/28/2018 CT abdomen and pelvis. FINDINGS: Lower chest: Mild bibasilar lung atelectasis. Liver: Within normal limits. Gallbladder and bile ducts: No gallbladder wall thickening or calcified gallstones. No biliary dilation identified. Pancreas: Unremarkable. Spleen: Normal. Adrenals: No nodules or masses. Kidneys, ureters, and urinary bladder: No renal masses or hydronephrosis. No bladder mass or definite wall thickening. Gastrointestinal tract: Normal caliber small bowel without wall thickening or obstruction. There is mild wall thickening of the cecum, greatest posteriorly, with adjacent fat stranding. The pericecal fat stranding extends to the proximal appendix, but the appendix does not appear enlarged and appendicitis is not felt present. There is a moderate amount of hyperdense material within the cecal lumen consistent with extravasated contrast, indicating active intraluminal bleeding. Vascular structures: Normal for age. Peritoneum: No free air, abscess, or significant free fluid. Lymph nodes: Several upper normal-sized mesenteric lymph nodes, stable to slightly decreased in size compared to the previous exam. Reproductive organs: No pelvic masses. Bones: Normal for age. IMPRESSION: Cecal wall thickening with pericecal fat stranding. Extravasated contrast into the cecal lumen consistent with active bleeding. The findings are most consistent with cecal diverticulitis complicated by intraluminal hemorrhage. Results were called to Dr. Loyola at 11:05 p.m. on 07/31/2019. BRIDGETTE SALTER MD [facility] Dictated by Christofer Salter MD @ 07/31/2019 11:07:36 PM Dictated by: Christofer Salter MD @ 07/31/2019 23:19:32 (Electronically Signed)
[2019-07-31] MEDS ORDERED: fentaNYL 100 MCG/2 ML SDV IVPUSH ONE (23:32)
[2019-07-31 23:38] VITALS: BP 123/63; PULSE 82
[2019-07-31] MEDS ORDERED: Sodium Chloride 0.9% 1,000 ML IV SCH (23:45)
--- NOTE | 2019-08-01 00:05 | PCM.SN ---
- Free Text/Narrative Note: Patient is a 48 year old male who presents with RLQ pain for three days. His vital signs were stable on arrival. He had guarding and pain with palpation of the RLQ. He had a normal WBC. Hgb was 15. A CT abdomen/pelvis with IV contrast was performed which showed cecal diverticulitis with active extravasation of contrast. He came back from CT and had a voluminous bloody bowel movement. His BP dropped slightly. A repeat H/H showed a 2 gm drop in his hemoglobin. Given the active bleeding, I and the ER physician agreed that he should be transferred to [facility] in case the bleeding continues and he needs interventional radiology. I visited with the patient who was in agreement.
== END 2019-08-01 00:20 ==
LOC: MW.ED 20:43
DX: K57.33 Diverticulitis of large intestine without perforation or abscess with bleeding (principal); I10 Essential (primary) hypertension; F41.9 Anxiety disorder, unspecified; Z79.899 Other long term (current) drug therapy
CPT/HCPCS: 36430; 74177; 80053; 81003; 83605; 83690; 85014; 85018; 85025; 85610; 86850; 86900; 86901; 86920; 86921; 86922; 96361; 96365; 96368; 96375; 96376; 99285; J1885; J1956; J2270; J2405; J3010; J3490; J7040; P9016; Q9967; 99291

== ENCOUNTER 2020-01-09 12:22 | Emergency (ER) | payer BC ==
[2020-01-09] MEDS ORDERED: Ondansetron 4 MG/2 ML SDV IVPUSH ONE (12:27)
[2020-01-09] MEDS ORDERED: Sodium Chloride 0.9% 1,000 ML IV ONE (12:27)
[2020-01-09] MEDS ORDERED: Sodium Chloride 0.9% 2.5 ML Syringe FLUSH PRN (12:27)
[2020-01-09] MEDS ORDERED: Sodium Chloride 0.9% 10 ML Syringe FLUSH PRN (12:27)
--- NOTE | 2020-01-09 12:31 | EDM.PDOC ---
ED HPI GENERAL MEDICAL PROBLEM - General Chief Complaint: General Stated Complaint: SHORTNESS OF BREATH, NUMBNESS IN ARMS AND LEGS Time Seen by Provider: 01/09/20 12:25 Source of Information: Reports: Patient History Limitations: Reports: No Limitations - History of Present Illness INITIAL COMMENTS - FREE TEXT/NARRATIVE: Pt with pmh shown below presents with one week of generalized abdominal pain associated with nausea, diarrhea, fatigue and muscle cramps. No fever, vomiting or chest symptoms. Onset: Today Abdominal Pain Score (Numeric/FACES): 6 - Related Data Allergies Allergy/AdvReac Type Severity Reaction Status Date / Time No Known Allergies Allergy Verified 01/09/20 12:26 Home Meds: Home Meds Anxiety Med 07/31/19 [History] Lisinopril 20 mg PO DAILY 07/31/19 [History] Past Medical History HEENT History: Reports: None Other HEENT History: wears contacts Cardiovascular History: Reports: Hypertension Respiratory History: Reports: None Gastrointestinal History: Reports: None Genitourinary History: Reports: None Musculoskeletal History: Reports: Back Pain, Chronic Neurological History: Reports: None Psychiatric History: Reports: Anxiety Endocrine/Metabolic History: Reports: Obesity/BMI 30+ Hematologic History: Reports: None Immunologic History: Reports: None Oncologic (Cancer) History: Reports: None Dermatologic History: Reports: None - Infectious Disease History Infectious Disease History: Reports: Chicken Pox - Past Surgical History Head Surgeries/Procedures: Reports: None HEENT Surgical History: Reports: Cataract Surgery, Eye Surgery Cardiovascular Surgical History: Reports: None Respiratory Surgical History: Reports: None GI Surgical History: Reports: None Male Surgical History: Reports: None Endocrine Surgical History: Reports: None Neurological Surgical History: Reports: None Musculoskeletal Surgical History: Reports: None Oncologic Surgical History: Reports: None Dermatological Surgical History: Reports: None Social & Family History - Family History Family Medical History: Noncontributory Cardiac: Reports: Hypertension - Caffeine Use Caffeine Use: Reports: None ED ROS GENERAL - Review of Systems Review Of Systems: See Below Constitutional: Reports: Malaise, Weakness, Fatigue Respiratory: Reports: No Symptoms. Denies: Shortness of Breath, Cough Cardiovascular: Reports: No Symptoms. Denies: Chest Pain GI/Abdominal: Reports: Abdominal Pain, Nausea Neurological: Reports: No Symptoms ED EXAM, GENERAL - Physical Exam Exam: See Below Exam Limited By: No Limitations General Appearance: Alert, WD/WN, No Apparent Distress Head: Atraumatic, Normocephalic Respiratory/Chest: No Respiratory Distress, Lungs Clear, Normal Breath Sounds Cardiovascular: Regular Rate, Rhythm, No Murmur GI/Abdominal: Soft, Non-Tender, No Distention, Other (Serial abdominal exams benign). No: Guarding, Rebound Neurological: Alert, Oriented, Normal Cognition, No Motor/Sensory Deficits Skin Exam: Warm, Dry, Normal Color Course - Vital Signs Last Recorded V/S: Last Vital Signs Temp 98.3 F 01/09/20 14:47 Pulse 66 01/09/20 14:47 Resp 15 01/09/20 14:47 BP 135/88 01/09/20 14:47 Pulse Ox 97 01/09/20 14:47 - Orders/Labs/Meds Labs: Laboratory Tests 01/09/20 01/09/20 01/09/20 Range/Units 12:32 12:32 12:48 WBC 4.77 (4.0-11.0) K/uL RBC 5.31 (4.50-5.90) M/uL Hgb 15.3 (13.0-17.0) g/dL Hct 46.4 (38.0-50.0) % MCV 87.4 (80.0-98.0) fL MCH 28.8 (27.0-32.0) pg MCHC 33.0 (31.0-37.0) g/dL RDW Std Deviation 49.3 (28.0-62.0) fl RDW Coeff of Brigida 15 (11.0-15.0) % Plt Count 272 (150-400) K/uL MPV 9.60 (7.40-12.00) fL Neut % (Auto) 56.7 (48.0-80.0) % Lymph % (Auto) 33.5 (16.0-40.0) % [place] % (Auto) 7.1 (0.0-15.0) % Eos % (Auto) 2.1 (0.0-7.0) % Baso % (Auto) 0.6 (0.0-1.5) % Neut # (Auto) 2.7 (1.4-5.7) K/uL Lymph # (Auto) 1.6 (0.6-2.4) K/uL [place] # (Auto) 0.3 (0.0-0.8) K/uL Eos # (Auto) 0.1 (0.0-0.7) K/uL Baso # (Auto) 0.0 (0.0-0.1) K/uL Nucleated RBC % 0.0 /100WBC Nucleated RBCs # 0 K/uL Sodium 141 (136-148) mmol/L Potassium 3.8 (3.5-5.1) mmol/L Chloride 103 (98-107) mmol/L Carbon Dioxide 27.1 (21.0-32.0) mmol/L BUN 13 (7.0-18.0) mg/dL Creatinine 0.9 (0.8-1.3) mg/dL Est Cr Clr Drug Dosing 111.37 mL/min Estimated GFR (MDRD) > 60.0 ml/min Glucose 81 (74-106) mg/dL Calcium 9.4 (8.5-10.1) mg/dL Total Bilirubin 0.7 (0.2-1.0) mg/dL AST 34 (15-37) IU/L ALT 59 (14-63) IU/L Alkaline Phosphatase 44 L (46-116) U/L Troponin I < 0.050 (0.000-0.056) ng/mL Total Protein 7.8 (6.4-8.2) g/dL Albumin 4.6 (3.4-5.0) g/dL Globulin 3.2 (2.6-4.0) g/dL Albumin/Globulin Ratio 1.4 (0.9-1.6) Lipase 149 (73-393) U/L Urine Color YELLOW Urine Appearance CLEAR Urine pH 6.0 (5.0-8.0) Ur Specific [place] <= 1.005 (1.001-1.035) Urine Protein NEGATIVE (NEGATIVE) mg/dL Urine Glucose (UA) NEGATIVE (NEGATIVE) mg/dL Urine Ketones NEGATIVE (NEGATIVE) mg/dL Urine Occult Blood NEGATIVE (NEGATIVE) Urine Nitrite NEGATIVE (NEGATIVE) Urine Bilirubin NEGATIVE (NEGATIVE) Urine Urobilinogen 0.2 (<2.0) EU/dL Ur Leukocyte Esterase NEGATIVE (NEGATIVE) Urine RBC NONE SEEN (0-2/HPF) Urine WBC 0-1 (0-5/HPF) Ur Epithelial Cells RARE (NONE-FEW) Urine Bacteria RARE (NEGATIVE) Meds: Medications Discontinued Medications Generic Name Dose Route Start Last Admin Trade Name Freq PRN Reason Stop Dose Admin Sodium Chloride 1,000 mls @ 999 mls/hr 01/09/20 12:27 01/09/20 12:37 Normal Saline IV 01/09/20 13:27 999 mls/hr BOLUS ONE Administration Ketorolac Tromethamine 30 mg 01/09/20 14:24 01/09/20 14:35 Toradol IVPUSH 01/09/20 14:25 30 mg ONETIME ONE Administration Ondansetron HCl 4 mg 01/09/20 12:27 01/09/20 12:37 Zofran IVPUSH 01/09/20 12:28 4 mg ONETIME ONE Administration Sodium Chloride 10 ml 01/09/20 12:27 Saline Flush FLUSH ASDIRECTED PRN Keep Vein Open Sodium Chloride 2.5 ml 01/09/20 12:27 Saline Flush FLUSH ASDIRECTED PRN Keep Vein Open - Re-Assessments/Exams Free Text/Narrative Re-Assessment/Exam: VS stable and PE benign. ED work up clinically unremarkable. Serial abdominal exams benign and labs unremarkable. I have low suspicion for severe abdominal pathology. Results discussed in detail with pt. Pt improved with ED therapy with symptoms resolved and is comfortable with discharge. Strict return precautions discussed should symptoms worsen or any concerns arise. Departure - Departure Time of Disposition: 14:31 Disposition: Home, Self-Care 01 Condition: Good Clinical Impression: Diarrhea - Discharge Information *PRESCRIPTION DRUG MONITORING PROGRAM REVIEWED*: Not Applicable *COPY OF PRESCRIPTION DRUG MONITORING REPORT IN PATIENT LAURA: Not Applicable Instructions: Diarrhea, Adult, [id number] Referrals: PCP,None [Primary Care Provider] - Forms: ED Department Discharge Additional Instructions: My general discharge The following information is given to patients seen in the emergency department who are being discharged to home. This information is to outline your options for follow-up care. We provide all patients seen in our emergency department with a follow-up referral. The need for follow-up, as well as the timing and circumstances, are variable depending upon the specifics of your emergency department visit. If you don't have a primary care physician on staff, we will provide you with a referral. We always advise you to contact your personal physician following an emergency department visit to inform them of the circumstance of the visit and for follow-up with them and/or the need for any referrals to a consulting specialist. The emergency department will also refer you to a specialist when appropriate. This referral assures that you have the opportunity for follow-up care with a specialist. All of these measure are taken in an effort to provide you with optimal care, which includes your follow-up. Under all circumstances we always encourage you to contact your private physician who remains a resource for coordinating your care. When calling for follow-up care, please make the office aware that this follow-up is from your recent emergency room visit. If for any reason you are refused follow-up, please contact the [facility] Emergency Department at and asked to speak to the emergency department charge nurse. Sepsis Event Note - Evaluation Sepsis Screening Result: No Definite Risk - Focused Exam Date Exam was Performed: 01/11/20 Time Exam was Performed: 11:51
[2020-01-09 13:14] LABS: BLOOD UREA NITROGEN,BUN 13 mg/dL (7.0-18.0); CARBON DIOXIDE,CO2 27.1 mmol/L (21.0-32.0); CHLORIDE,CL 103 mmol/L (98-107); GLUCOSE RANDOM 81 mg/dL (74-106); LIPASE 149 U/L (73-393); POTASSIUM,K 3.8 mmol/L (3.5-5.1); SODIUM,NA 141 mmol/L (136-148)
[2020-01-09] MEDS ORDERED: Ketorolac 30 MG/ML SDV IVPUSH ONE (14:24)
[2020-01-09 14:51] VITALS: BP 135/88; PULSE 66
== END 2020-01-09 14:47 | disposition home or self-care (01) ==
LOC: MW.ED 12:22
DX: R19.7 Diarrhea, unspecified (principal); I10 Essential (primary) hypertension; E66.9 Obesity, unspecified; Z68.36 Body mass index [BMI] 36.0-36.9, adult; Z79.899 Other long term (current) drug therapy
CPT/HCPCS: 36415; 80053; 81001; 83690; 84484; 85025; 87804; 93005; 96361; 96374; 96375; 99284; J1885; J2405; J7030; 99282

== ENCOUNTER 2020-03-03 23:19 | Emergency (ER) | payer BC ==
[2020-03-03] MEDS ORDERED: Sodium Chloride 0.9% 10 ML Syringe FLUSH PRN (23:52)
[2020-03-03] MEDS ORDERED: Ketorolac 30 MG/ML SDV IVPUSH ONE (23:52)
[2020-03-03] MEDS ORDERED: Sodium Chloride 0.9% 2.5 ML Syringe FLUSH PRN (23:52)
--- NOTE | 2020-03-03 23:58 | EDM.PDOC ---
ED HPI GENERAL MEDICAL PROBLEM - General Chief Complaint: Abdominal Pain Stated Complaint: BLOOD IN STOOL, ABDOMINAL PAIN Time Seen by Provider: 03/03/20 23:31 - History of Present Illness INITIAL COMMENTS - FREE TEXT/NARRATIVE: 49-year-old male presents with abdominal pain. Patient reports a 2-week history of waxing and waning sharp left lower abdominal pain for which he is taken no special medication. Patient reports it feels very similar to the diverticulitis that he had roughly 7 months ago and he underwent an open repair at that time. Patient reports pain up to 5/10 in severity. Patient also endorses some loose stools which are sometimes dark and sometimes have some gross blood. This is also similar to his last presentation 7 months ago. Patient denies any fevers or vomiting. Patient denies any chest pain shortness of breath, weakness, numbness, dysuria, headaches, confusion, vision changes. abdominal Pain Score (Numeric/FACES): 6 - Related Data Allergies Allergy/AdvReac Type Severity Reaction Status Date / Time No Known Allergies Allergy Verified 03/03/20 23:40 Home Meds: Home Meds Anxiety Med 07/31/19 [History] Lisinopril 20 mg PO DAILY 07/31/19 [History] Past Medical History HEENT History: Reports: None Other HEENT History: wears contacts Cardiovascular History: Reports: Hypertension Respiratory History: Reports: None Gastrointestinal History: Reports: Diverticulosis Genitourinary History: Reports: None Musculoskeletal History: Reports: Back Pain, Chronic Neurological History: Reports: None Psychiatric History: Reports: Anxiety Endocrine/Metabolic History: Reports: Obesity/BMI 30+ Hematologic History: Reports: None Immunologic History: Reports: None Oncologic (Cancer) History: Reports: None Dermatologic History: Reports: None - Infectious Disease History Infectious Disease History: Reports: Chicken Pox - Past Surgical History Head Surgeries/Procedures: Reports: None HEENT Surgical History: Reports: Cataract Surgery, Eye Surgery Cardiovascular Surgical History: Reports: None Respiratory Surgical History: Reports: None GI Surgical History: Reports: None Male Surgical History: Reports: None Endocrine Surgical History: Reports: None Neurological Surgical History: Reports: None Musculoskeletal Surgical History: Reports: None Oncologic Surgical History: Reports: None Dermatological Surgical History: Reports: None Social & Family History - Family History Family Medical History: Noncontributory Cardiac: Reports: Hypertension - Tobacco Use Smoking Status *Q: Never Smoker - Caffeine Use Caffeine Use: Reports: None - Recreational Drug Use Recreational Drug Use: No ED ROS GENERAL - Review of Systems Review Of Systems: Comprehensive ROS is negative, except as noted in HPI. ED EXAM, GENERAL - Physical Exam Exam: See Below Free Text/Narrative:: General: No acute distress. Comfortable. Heent: Examination revealed no pallor, no icterus, no lymphadenopathy. The patient has normal posterior pharynx, moist mucous membranes. Neck: Supple. No JVD. No rigidity. Heart: Normal rate. Reg rhythm. No murmurs appreciated. Lungs: Bilaterally clear to auscultation. No focal findings. Abdomen: Mild/moderate tenderness left lower quadrant, non-distended, soft, no CVA tenderness. Neuro: Pt is moving all four extremities. EOMI. PERRL. Normal speech. Skin: Exposed areas appeared normally perfused, warm, normal color with no meaningful rashes or lesions. Extremities: Peripheral examination revealed no pedal edema. Peripheral pulses were 2+. Course - Vital Signs Text/Narrative:: Negative for diverticulitis. Stable laboratories. Hemoglobin is stone cold normal. Mention of sclerosing mesenteritis. This of course can be followed up outpatient. The apparent GI bleeding is been present for many days and with a stable hemoglobin there is no need for immediate admission for further work-up. Patient can follow-up with local surgeon/primary care to discuss his symptoms Return precautions. Last Recorded V/S: Last Vital Signs Temp 97.0 F 03/04/20 01:16 Pulse 71 03/04/20 01:16 Resp 18 03/04/20 01:16 BP 116/77 03/04/20 01:16 Pulse Ox 95 03/04/20 01:16 - Orders/Labs/Meds Orders: Active Orders 24 hr Category Date Time Status Sodium Chloride 0.9% [Saline Flush] Med 03/03/20 23:52 Active 10 ml FLUSH ASDIRECTED PRN Sodium Chloride 0.9% [Saline Flush] Med 03/03/20 23:52 Active 2.5 ml FLUSH ASDIRECTED PRN Saline Lock Insert [OM.PC] Stat Oth 03/03/20 23:52 Ordered Medication Orders Sodium Chloride (Saline Flush) 10 ml FLUSH ASDIRECTED PRN PRN Reason: Keep Vein Open Sodium Chloride (Saline Flush) 2.5 ml FLUSH ASDIRECTED PRN PRN Reason: Keep Vein Open Labs: Laboratory Tests 03/03/20 03/03/20 Range/Units 23:35 23:35 WBC 5.87 (4.0-11.0) K/uL RBC 5.28 (4.50-5.90) M/uL Hgb 16.3 (13.0-17.0) g/dL Hct 48.2 (38.0-50.0) % MCV 91.3 (80.0-98.0) fL MCH 30.9 (27.0-32.0) pg MCHC 33.8 (31.0-37.0) g/dL RDW Std Deviation 46.7 (28.0-62.0) fl RDW Coeff of Brigida 14 (11.0-15.0) % Plt Count 307 (150-400) K/uL MPV 9.40 (7.40-12.00) fL Neut % (Auto) 49.1 (48.0-80.0) % Lymph % (Auto) 37.3 (16.0-40.0) % [place] % (Auto) 9.0 (0.0-15.0) % Eos % (Auto) 3.9 (0.0-7.0) % Baso % (Auto) 0.7 (0.0-1.5) % Neut # (Auto) 2.9 (1.4-5.7) K/uL Lymph # (Auto) 2.2 (0.6-2.4) K/uL [place] # (Auto) 0.5 (0.0-0.8) K/uL Eos # (Auto) 0.2 (0.0-0.7) K/uL Baso # (Auto) 0.0 (0.0-0.1) K/uL Nucleated RBC % 0.0 /100WBC Nucleated RBCs # 0 K/uL Sodium 141 (136-148) mmol/L Potassium 4.0 (3.5-5.1) mmol/L Chloride 103 (98-107) mmol/L Carbon Dioxide 30.2 (21.0-32.0) mmol/L BUN 15 (7.0-18.0) mg/dL Creatinine 1.2 (0.8-1.3) mg/dL Est Cr Clr Drug Dosing 86.00 mL/min Estimated GFR (MDRD) > 60.0 ml/min Glucose 121 H (74-106) mg/dL Calcium 8.9 (8.5-10.1) mg/dL Total Bilirubin 0.4 (0.2-1.0) mg/dL AST 36 (15-37) IU/L ALT 77 H (14-63) IU/L Alkaline Phosphatase 56 (46-116) U/L Total Protein 7.8 (6.4-8.2) g/dL Albumin 4.2 (3.4-5.0) g/dL Globulin 3.6 (2.6-4.0) g/dL Albumin/Globulin Ratio 1.2 (0.9-1.6) Lipase 161 (73-393) U/L Meds: Medications Generic Name Dose Route Start Last Admin Trade Name Freq PRN Reason Stop Dose Admin Sodium Chloride 10 ml 03/03/20 23:52 Saline Flush FLUSH ASDIRECTED PRN Keep Vein Open Sodium Chloride 2.5 ml 03/03/20 23:52 Saline Flush FLUSH ASDIRECTED PRN Keep Vein Open Discontinued Medications Generic Name Dose Route Start Last Admin Trade Name Freq PRN Reason Stop Dose Admin Iopamidol 100 ml 03/04/20 00:39 03/04/20 00:40 Isovue-370 (76%) IVPUSH 03/04/20 00:40 100 ml ONETIME ONE Administration Ketorolac Tromethamine 15 mg 03/03/20 23:52 03/04/20 00:14 Toradol IVPUSH 03/03/20 23:53 15 mg ONETIME ONE Administration Departure - Departure Time of Disposition: 01:53 Disposition: DC/Tfer to Medicaid [facility] 64 Condition: Good Clinical Impression: Abdominal pain Qualifiers: Abdominal location: left lower quadrant Qualified Code(s): R10.32 - Left lower quadrant pain - Discharge Information Referrals: Physician,Other [Ordering Only Provider] - Forms: ED Department Discharge Additional Instructions: There is no evidence of diverticulitis on your imaging today. There is a mention of something called sclerosing mesenteric-itis. This is a rather complicated diagnosis and may not at all be anything causing your pain. It may not even be a diagnosis for you ultimately. However you need to follow-up with your primary care provider and possibly a general surgeon to discuss your GI bleeding and also your CT scan results. Limit the use of anti-inflammatory medications and aspirin to help decrease your bleeding. You need to return to emergency immediately with any increases in bleeding, lightheadedness, rapid heart rate, sweatiness or any other new or concerning symptom. Me and in the meantime follow-up with your primary care provider. The following information is given to patients seen in the emergency department who are being discharged to home. This information is to outline your options for follow-up care. We provide all patients seen in our emergency department with a follow-up referral. The need for follow-up, as well as the timing and circumstances, are variable depending upon the specifics of your emergency department visit. If you don't have a primary care physician on staff, we will provide you with a referral. We always advise you to contact your personal physician following an emergency department visit to inform them of the circumstance of the visit and for follow-up with them and/or the need for any referrals to a consulting specialist. The emergency department will also refer you to a specialist when appropriate. This referral assures that you have the opportunity for follow-up care with a specialist. All of these measure are taken in an effort to provide you with optimal care, which includes your follow-up. Under all circumstances we always encourage you to contact your private physician who remains a resource for coordinating your care. When calling for follow-up care, please make the office aware that this follow-up is from your recent emergency room visit. If for any reason you are refused follow-up, please contact the [facility] Emergency Department at and asked to speak to the emergency department charge nurse. Sepsis Event Note - Evaluation Sepsis Screening Result: No Definite Risk - Focused Exam Vital Signs: Vital Signs Temp Pulse Resp BP Pulse Ox 03/04/20 01:16 97.0 F 71 18 116/77 95 03/03/20 23:37 96.8 F L 76 16 146/92 H 93 L Date Exam was Performed: 03/04/20 Time Exam was Performed: 01:52 - My Orders Last 24 Hours: My Active Orders 03/03/20 23:52 Sodium Chloride 0.9% [Saline Flush] 10 ml FLUSH ASDIRECTED PRN Sodium Chloride 0.9% [Saline Flush] 2.5 ml FLUSH ASDIRECTED PRN Saline Lock Insert [OM.PC] Stat - Assessment/Plan Last 24 Hours: My Active Orders 03/03/20 23:52 Sodium Chloride 0.9% [Saline Flush] 10 ml FLUSH ASDIRECTED PRN Sodium Chloride 0.9% [Saline Flush] 2.5 ml FLUSH ASDIRECTED PRN Saline Lock Insert [OM.PC] Stat
[2020-03-04 00:09] LABS: BLOOD UREA NITROGEN,BUN 15 mg/dL (7.0-18.0); CARBON DIOXIDE,CO2 30.2 mmol/L (21.0-32.0); CHLORIDE,CL 103 mmol/L (98-107); GLUCOSE RANDOM 121 mg/dL (74-106); LIPASE 161 U/L (73-393); SODIUM,NA 141 mmol/L (136-148)
[2020-03-04] MEDS ORDERED: Iopamidol 755 Mg/ML 100 ML Bottle IVPUSH ONE (00:39)
--- NOTE | 2020-03-04 01:30 | CT ---
INDICATION: Abdominal pain TECHNIQUE: CT abdomen and pelvis acquired with IV contrast. 100 mL of Isovue 370 administered. COMPARISON: 07/31/2019 FINDINGS: Lower chest: Minor subsegmental atelectasis posteriorly. A 4 mm pleural-based right lower lobe nodule on image 17, statistically postinflammatory by size in a patient of this age. Liver: Mild hepatic steatosis. Spleen: Unremarkable. Pancreas: Unremarkable. Gallbladder and bile ducts: Few apparent subtle reticular densities within the contracted gallbladder could represent poorly calcified gallstones, sludge or artifact. Adrenal glands: Unremarkable. Kidneys: Unremarkable. GI tract: No mechanical bowel obstruction. Apparent wall prominence in some small bowel segments. Apparent slight stranding adjacent to few small bowel segments may be related to mild regional motion artifact. Status post partial right hemicolectomy. No significant pericolonic changes. Vascular structures: Unremarkable. Lymph nodes: Borderline and shotty subcentimeter mesenteric lymph nodes, nonspecific. Miscellaneous: Slightly increased hazy attenuation in the central mesenteric fat, nonspecific. No significant free fluid or free air. A small fat containing right inguinal hernia. Pelvic Organs: Stable prostate. An apparent small curvilinear density within the bladder could be related to artifact. Bones: Unremarkable for age. IMPRESSION: Areas of small bowel wall prominence. Correlate clinically for enteritis. Status post partial right hemicolectomy. No evidence of diverticulitis or bowel obstruction. Slightly increased hazy attenuation in the central mesenteric fat, nonspecific, which could represent minimal sclerosing mesenteritis. Borderline and shotty subcentimeter mesenteric lymph nodes are nonspecific. Dictated by Siddharth Littlejohn MD @ 03/04/2020 1:29:07 AM Please note that all CT scans at this facility use dose modulation, iterative reconstruction, and/or weight-based dosing when appropriate to reduce radiation dose to as low as reasonably achievable. Dictated by: Siddharth Littlejohn MD @ 03/04/2020 01:29:15 (Electronically Signed)
[2020-03-04 02:26] VITALS: BP 123/80; PULSE 77
== END 2020-03-04 02:26 | disposition home or self-care (01) ==
LOC: MW.ED 23:19
DX: R10.32 Left lower quadrant pain (principal); I10 Essential (primary) hypertension; E66.9 Obesity, unspecified; Z68.38 Body mass index [BMI] 38.0-38.9, adult; Z79.899 Other long term (current) drug therapy
CPT/HCPCS: 36415; 74177; 80053; 83690; 85025; 96374; 99285; J1885; Q9967; 99284

== ENCOUNTER 2021-05-12 17:46 | Emergency (ER) | payer BC ==
[2021-05-12] MEDS ORDERED: Ondansetron 4 MG/2 ML SDV IVPUSH ONE (18:24)
[2021-05-12] MEDS ORDERED: Sodium Chloride 0.9% 10 ML Syringe FLUSH PRN (18:24)
[2021-05-12] MEDS ORDERED: Ketorolac 30 MG/ML SDV IVPUSH ONE (18:24)
[2021-05-12] MEDS ORDERED: Sodium Chloride 0.9% 2.5 ML Syringe FLUSH PRN (18:24)
[2021-05-12] MEDS ORDERED: Sodium Chloride 0.9% 1,000 ML IV ONE (18:24)
--- NOTE | 2021-05-12 18:32 | EDM.PDOC ---
ED HPI GENERAL MEDICAL PROBLEM - General Chief Complaint: Abdominal Pain Stated Complaint: PAIN IN STOMACHE AND LOWER SIDE Time Seen by Provider: 05/12/21 17:49 Source of Information: Reports: Patient History Limitations: Reports: No Limitations - History of Present Illness INITIAL COMMENTS - FREE TEXT/NARRATIVE: HISTORY AND PHYSICAL: History of present illness: The patient is a 50-year-old male who presents to the emergency room with complaints of right flank pain and umbilical pain which has been intermittent for the last 2 months. The patient states that he does have nausea but no vomiting. He has had a decreased appetite and has not been taking in enough fluids. Patient states that he has chronic diarrhea. The patient states he feels like he has been urinating okay but he does have dysuria and a foul odor. The patient has not taken any [id number] medications for the discomfort he has not attempted heat or cold for relief. 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 Patient denies any fever, chills, change in vision, syncope or near syncope. Denies any chest pain, back pain, shortness of breath or cough. Has not noted any blood in urine or stool. Review of systems: As per history of present illness and below otherwise all systems reviewed and negative. Past medical history: As per history of present illness and as reviewed below otherwise noncontributory. Surgical history: As per history of present illness and as reviewed below otherwise noncontributory. Social history: See social history for further information Family history: As per history of present illness and as reviewed below otherwise noncontributory. Physical exam: General: Well developed and well nourished. Alert and orientated x 3. Nontoxic in appearance and in no acute distress. Vital signs are stable and have been reviewed by me. Nursing notes were reviewed. HEENT: Atraumatic, normocephalic, pupils equal and reactive bilaterally, negative for conjunctival pallor or scleral icterus, mucous membranes moist, TMs normal bilaterally, throat clear, neck supple, nontender, trachea midline. No drooling or trismus noted. No meningeal signs. No hot potato voice noted. Lungs: Clear to auscultation bilaterally. No wheezes, rales, or rhonchi. Chest nontender. Normal work of breathing, no accessory muscles used. Heart: S1S2, regular rate and rhythm without overt murmur, gallops, or rubs. No JVD. No peripheral edema Abdomen: Soft, nondistended, periumbilical tenderness. Normoactive bowel sounds. Negative for masses or costovertebral tenderness. Skin: Intact, warm, dry. No lesions or rashes noted. Hematologic: No petechiae or purpra. Mucosa appropriate color and normal nail bed color and refill. Extremities: Atraumatic, moves all extremities per self without difficulty or deficits, negative for cords or calf pain. Neurovascular unremarkable. Neuro: Awake, alert, oriented. Cranial nerves II through XII unremarkable. Cerebellum unremarkable. Motor and sensory unremarkable throughout. Exam nonfocal. Psychiatric: Mood and affect are appropriate. Normal thought process. Answering questions appropriately. Notes: *This patient was seen and evaluated during the 2019 SARS-CoV-2 novel coronavirus pandemic period. Community viral transmission is ongoing at time of this encounter and the emergency department is operating under pandemic response procedures. As stated above the patient is a 50-year-old male who presents to the emergency room with complaints of right flank pain and periumbilical pain for the last 2 months. He states the pain is intermittent. He has had nausea intermittently along with the pain and which has decreased his appetite and fluid intake. Patient states he has the diarrhea however this is chronic. He does have dysuria and a foul odor of the urine. I will do a abdominal work-up on the patient to include blood work, abdominal/pelvis CT, and a urinalysis. I will treat the patient with IV fluids, Toradol 30, and Zofran. The patient is agreeable with this plan. The patient has a history of hypertension and normally takes lisinopril on a daily basis, however, he forgot to take his medication today. In the emergency room his blood pressure is 160/40 and a heart rate of 83. The CBC, CMP, lipase, magnesium, and urinalysis are unremarkable. Abdomen pelvis CT IMPRESSION: No acute abnormality within the abdomen and pelvis. The patient was educated on the test results and no emergent findings for the abdominal pain. I educated the patient on the need to have good gut health has been having regular bowel movements every day. Patient will use Metamucil or MiraLAX to achieve this. I discussed the need for the patient to follow-up with his primary care for further follow-up. The patient is agreeable with this discharge plan. I have talked with the patient about today's findings, in addition to providing specific details for plan of care. Reassessment at the time of disposition demonstrates that the patient is in no acute distress. The patient is stable for discharge, counseling was provided and we discussed in great detail signs and symptoms that would prompt them to return to the Emergency Department. Medication, follow up and supportive care measures were reviewed and discussed. Voices understanding and is agreeable to plan of care. Denies any further questions or concerns at this time. Diagnostics: CBC, CMP, lipase, magnesium, UA, CT abdomen/pelvis Therapeutics: IV fluids, Zofran 4 mg IV, Toradol 30 mg IV Impression: [place] pain Plan: 1. You were evaluated today on an emergent basis. Your right flank pain and mid abdominal pain were evaluated with blood work which were all normal, urinalysis which was negative for infection and an ET of your abdomen and pelvis, which was also normal. Ensure that you are having adequate bowel movements on a daily basis. You can use Metamucil daily for this. You can also add MiraLAX if the Metamucil is not working. Follow-up with your primary care if the pain continues. 2. You can alternate Tylenol and ibuprofen as needed for pain and fever rosemary gement. 3. We encourage you to follow up with your primary care provider and/or recommended specialist in the next few days for re-evaluation and further care/management. 4. If your symptoms should worsen, new symptoms develop or any of the signs and symptoms we discussed should arise please return to the emergency room or call 911 (if needed). Definitive disposition and diagnosis as appropriate pending reevaluation and review of above. bilateral flanks, lower abdomen Pain Score (Numeric/FACES): 6 - Related Data Allergies Allergy/AdvReac Type Severity Reaction Status Date / Time No Known Allergies Allergy Verified 05/12/21 18:12 Home Meds: Home Meds Anxiety Med 07/31/19 [History] Lisinopril 20 mg PO DAILY 07/31/19 [History] Past Medical History HEENT History: Reports: None Other HEENT History: wears contacts Cardiovascular History: Reports: Hypertension Respiratory History: Reports: None Gastrointestinal History: Reports: Diverticulosis Genitourinary History: Reports: None Musculoskeletal History: Reports: Back Pain, Chronic Neurological History: Reports: None Psychiatric History: Reports: None Endocrine/Metabolic History: Reports: Obesity/BMI 30+ Hematologic History: Reports: None Immunologic History: Reports: None Oncologic (Cancer) History: Reports: None Dermatologic History: Reports: None - Infectious Disease History Infectious Disease History: Reports: Chicken Pox - Past Surgical History Head Surgeries/Procedures: Reports: None HEENT Surgical History: Reports: Cataract Surgery, Eye Surgery Other HEENT Surgeries/Procedures: cataract surgery on right eye at age of 5 yo Cardiovascular Surgical History: Reports: None Respiratory Surgical History: Reports: None GI Surgical History: Reports: None Male Surgical History: Reports: None Endocrine Surgical History: Reports: None Neurological Surgical History: Reports: None Musculoskeletal Surgical History: Reports: None Oncologic Surgical History: Reports: None Dermatological Surgical History: Reports: None Social & Family History - Family History Family Medical History: No Pertinent Family History Cardiac: Reports: Hypertension - Caffeine Use Caffeine Use: Reports: None - Recreational Drug Use Recreational Drug Use: No ED ROS GENERAL - Review of Systems Review Of Systems: Comprehensive ROS is negative, except as noted in HPI. ED EXAM, GI/ABD - Physical Exam Exam: See Below (See dictation) Course - Vital Signs Last Recorded V/S: Last Vital Signs Temp 98.1 F 05/12/21 18:45 Pulse 69 05/12/21 20:45 Resp 17 05/12/21 20:45 BP 149/90 H 05/12/21 20:45 Pulse Ox 96 05/12/21 20:45 - Orders/Labs/Meds Orders: Active Orders 24 hr Category Date Time Status Sodium Chloride 0.9% [Saline Flush] Med 05/12/21 18:24 Active 10 ml FLUSH ASDIRECTED PRN Sodium Chloride 0.9% [Saline Flush] Med 05/12/21 18:24 Active 2.5 ml FLUSH ASDIRECTED PRN Saline Lock Insert [OM.PC] Stat Oth 05/12/21 18:24 Ordered Medication Orders Sodium Chloride (Sodium Chloride 0.9% 10 Ml Syringe) 10 ml FLUSH ASDIRECTED PRN PRN Reason: Keep Vein Open Last Admin: 05/12/21 18:39 Dose: 10 ml Documented by: JACQUELINE Sodium Chloride (Sodium Chloride 0.9% 2.5 Ml Syringe) 2.5 ml FLUSH ASDIRECTED PRN PRN Reason: Keep Vein Open Last Admin: 05/12/21 18:39 Dose: 2.5 ml Documented by: JACQUELINE Labs: Laboratory Tests 05/12/21 05/12/21 05/12/21 Range/Units 18:35 18:35 18:50 WBC 5.39 (4.0-11.0) K/uL RBC 5.25 (4.50-5.90) M/uL Hgb 16.5 (13.0-17.0) g/dL Hct 47.1 (38.0-50.0) % MCV 89.7 (80.0-98.0) fL MCH 31.4 (27.0-32.0) pg MCHC 35.0 (31.0-37.0) g/dL RDW Std Deviation 43.2 (28.0-62.0) fl RDW Coeff of Brigida 13 (11.0-15.0) % Plt Count 262 (150-400) K/uL MPV 10.00 (7.40-12.00) fL Neut % (Auto) 57.9 (48.0-80.0) % Lymph % (Auto) 30.8 (16.0-40.0) % [place] % (Auto) 7.2 (0.0-15.0) % Eos % (Auto) 3.2 (0.0-7.0) % Baso % (Auto) 0.9 (0.0-1.5) % Neut # (Auto) 3.1 (1.4-5.7) K/uL Lymph # (Auto) 1.7 (0.6-2.4) K/uL [place] # (Auto) 0.4 (0.0-0.8) K/uL Eos # (Auto) 0.2 (0.0-0.7) K/uL Baso # (Auto) 0.1 (0.0-0.1) K/uL Nucleated RBC % 0.0 /100WBC Nucleated RBCs # 0 K/uL Sodium 141 (136-148) mmol/L Potassium 3.8 (3.5-5.1) mmol/L Chloride 103 (98-107) mmol/L Carbon Dioxide 29.3 (21.0-32.0) mmol/L BUN 19 H (7.0-18.0) mg/dL Creatinine 1.0 (0.8-1.3) mg/dL Est Cr Clr Drug Dosing 102.09 mL/min Estimated GFR (MDRD) > 60.0 ml/min Glucose 97 (74-106) mg/dL Calcium 8.9 (8.5-10.1) mg/dL Total Bilirubin 0.5 (0.2-1.0) mg/dL AST 30 (15-37) IU/L ALT 75 H (14-63) IU/L Alkaline Phosphatase 53 (46-116) U/L Total Protein 7.7 (6.4-8.2) g/dL Albumin 4.2 (3.4-5.0) g/dL Globulin 3.5 (2.6-4.0) g/dL Albumin/Globulin Ratio 1.2 (0.9-1.6) Lipase 168 (73-393) U/L Urine Color YELLOW Urine Appearance CLEAR Urine pH 6.5 (5.0-8.0) Ur Specific [employer] 1.020 (1.001-1.035) Urine Protein NEGATIVE (NEGATIVE) mg/dL Urine Glucose (UA) NEGATIVE (NEGATIVE) mg/dL Urine Ketones NEGATIVE (NEGATIVE) mg/dL Urine Occult Blood NEGATIVE (NEGATIVE) Urine Nitrite NEGATIVE (NEGATIVE) Urine Bilirubin NEGATIVE (NEGATIVE) Urine Urobilinogen 0.2 (<2.0) EU/dL Ur Leukocyte Esterase NEGATIVE (NEGATIVE) Meds: Medications Generic Name Dose Route Start Last Admin Trade Name Freq PRN Reason Stop Dose Admin Sodium Chloride 10 ml 05/12/21 18:24 05/12/21 18:39 Sodium Chloride 0.9% 10 Ml Syringe FLUSH 10 ml ASDIRECTED PRN Administration Keep Vein Open Sodium Chloride 2.5 ml 05/12/21 18:24 05/12/21 18:39 Sodium Chloride 0.9% 2.5 Ml Syringe FLUSH 2.5 ml ASDIRECTED PRN Administration Keep Vein Open Discontinued Medications Generic Name Dose Route Start Last Admin Trade Name Freq PRN Reason Stop Dose Admin Sodium Chloride 1,000 mls @ 999 mls/hr 05/12/21 18:24 05/12/21 18:39 Normal Saline IV 05/12/21 19:24 999 mls/hr BOLUS ONE Administration Iopamidol 100 ml 05/12/21 20:13 05/12/21 20:17 Iopamidol 755 Mg/Ml 100 Ml Bottle IVPUSH 05/12/21 20:14 100 ml ONETIME ONE Administration Ketorolac Tromethamine 30 mg 05/12/21 18:24 05/12/21 18:38 Ketorolac 30 Mg/Ml Sdv IVPUSH 05/12/21 18:25 30 mg ONETIME ONE Administration Ondansetron HCl 4 mg 05/12/21 18:24 05/12/21 18:38 Ondansetron 4 Mg/2 Ml Sdv IVPUSH 05/12/21 18:25 4 mg ONETIME ONE Administration Departure - Departure Time of Disposition: 21:13 Disposition: Home, Self-Care 01 Condition: Good Clinical Impression: Abdominal pain Qualifiers: Abdominal location: left lower quadrant Qualified Code(s): R10.32 - Left lower quadrant pain - Discharge Information *PRESCRIPTION DRUG MONITORING PROGRAM REVIEWED*: Not Applicable *COPY OF PRESCRIPTION DRUG MONITORING REPORT IN PATIENT LAURA: Not Applicable Instructions: Abdominal Pain, Adult, [id number] Referrals: Vannessa Alas DO [Primary Care Provider] - Forms: ED Department Discharge Additional Instructions: The following information is given to patients seen in the emergency department who are being discharged to home. This information is to outline your options for follow-up care. We provide all patients seen in our emergency department with a follow-up referral. The need for follow-up, as well as the timing and circumstances, are variable depending upon the specifics of your emergency department visit. If you don't have a primary care physician on staff, we will provide you with a referral. We always advise you to contact your personal physician following an emergency department visit to inform them of the circumstance of the visit and for follow-up with them and/or the need for any referrals to a consulting specialist. The emergency department will also refer you to a specialist when appropriate. This referral assures that you have the opportunity for follow-up care with a specialist. All of these measure are taken in an effort to provide you with optimal care, which includes your follow-up. Under all circumstances we always encourage you to contact your private physician who remains a resource for coordinating your care. When calling for follow-up care, please make the office aware that this follow-up is from your recent emergency room visit. If for any reason you are refused follow-up, please contact the [facility] Emergency Department at and asked to speak to the emergency department charge nurse. Bubba Castellano [facility] [address] [place] [id number] [facility] [address] [place] [address] Plan: 1. You were evaluated today on an emergent basis. Your right flank pain and mid abdominal pain were evaluated with blood work which were all normal, urinalysis which was negative for infection and an ET of your abdomen and pelvis, which was also normal. Ensure that you are having adequate bowel movements on a daily basis. You can use Metamucil daily for this. You can also add MiraLAX if the Metamucil is not working. Follow-up with your primary care if the pain continues. 2. You can alternate Tylenol and ibuprofen as needed for pain and fever management. 3. We encourage you to follow up with your primary care provider and/or recommended specialist in the next few days for re-evaluation and further care/management. 4. If your symptoms should worsen, new symptoms develop or any of the signs and symptoms we discussed should arise please return to the emergency room or call 911 (if needed). Sepsis Event Note (ED) - Evaluation Sepsis Screening Result: No Definite Risk - Focused Exam Vital Signs: Vital Signs Temp Pulse Resp BP Pulse Ox 05/12/21 20:45 69 17 149/90 H 96 05/12/21 18:45 98.1 F 74 18 167/103 H 96 05/12/21 18:13 98 F 78 160/104 H - My Orders Last 24 Hours: My Active Orders 05/12/21 18:24 Sodium Chloride 0.9% [Saline Flush] 10 ml FLUSH ASDIRECTED PRN Sodium Chloride 0.9% [Saline Flush] 2.5 ml FLUSH ASDIRECTED PRN Saline Lock Insert [OM.PC] Stat - Assessment/Plan Last 24 Hours: My Active Orders 05/12/21 18:24 Sodium Chloride 0.9% [Saline Flush] 10 ml FLUSH ASDIRECTED PRN Sodium Chloride 0.9% [Saline Flush] 2.5 ml FLUSH ASDIRECTED PRN Saline Lock Insert [OM.PC] Stat
[2021-05-12 18:58] LABS: BLOOD UREA NITROGEN,BUN 19 mg/dL (7.0-18.0); CARBON DIOXIDE,CO2 29.3 mmol/L (21.0-32.0); CHLORIDE,CL 103 mmol/L (98-107); GLUCOSE RANDOM 97 mg/dL (74-106); LIPASE 168 U/L (73-393); POTASSIUM,K 3.8 mmol/L (3.5-5.1); SODIUM,NA 141 mmol/L (136-148)
[2021-05-12] MEDS ORDERED: Iopamidol 755 Mg/ML 100 ML Bottle IVPUSH ONE (20:13)
--- NOTE | 2021-05-12 21:06 | CT ---
INDICATION: Generalized abdominal pain TECHNIQUE: CT abdomen and pelvis acquired with IV contrast. COMPARISON: CT and pelvis 03/04/2020 FINDINGS: The visualized portions of the lung bases are clear. The liver, spleen, pancreas and adrenal glands are unremarkable. The gallbladder is nondistended. The kidneys enhance symmetrically without hydronephrosis. The bladder is minimally distended and unremarkable. There are no dilated loops of small bowel to suggest obstruction.The appendix is not visualized. There are postsurgical changes at the cecum.There is no intraperitoneal free air or fluid. There is similar appearing mild haziness of mesentery with small mesenteric lymph nodes. There is a small fat containing right inguinal hernia. IMPRESSION: No acute abnormality within the abdomen and pelvis. Please note that all CT scans at this facility use dose modulation, iterative reconstruction, and/or weight-based dosing when appropriate to reduce radiation dose to as low as reasonably achievable. Dictated by Angela Tobias MD @ 05/12/2021 9:03:[address] Angela Tobias @ May 12 2021 9:03PM
[2021-05-12 21:55] VITALS: BP 134/88; PULSE 72
== END 2021-05-12 20:42 | disposition home or self-care (01) ==
LOC: MW.ED 17:46
DX: R10.32 Left lower quadrant pain (principal)
CPT/HCPCS: 36415; 74177; 80053; 81003; 83690; 85025; 96374; 96375; 99284; J1885; J2405; J7030; Q9967

== ENCOUNTER 2021-07-06 12:57 | Emergency (ER) | payer BC ==
--- NOTE | 2021-07-06 15:01 | EDM.PDOC ---
ED HPI GENERAL MEDICAL PROBLEM - General Chief Complaint: Headache Stated Complaint: RINGING IN EAR, HEADACHE Time Seen by Provider: 07/06/21 14:40 Source of Information: Reports: Patient History Limitations: Reports: No Limitations - History of Present Illness INITIAL COMMENTS - FREE TEXT/NARRATIVE: Patient is a 50-year-old male presents today for symptoms of ear pain for the past 3 months. He states he occasionally has a headache with the ear pain as well. Denies going swimming or put any Q-tips objects into his ear. Denies any direct trauma to the ear. The pain is made worse when you touch or move the ear. Denies any change in hearing. No change in vision or speech or any other neurological complaints. Denies any fever chills or other complaints. - Related Data Allergies Allergy/AdvReac Type Severity Reaction Status Date / Time No Known Allergies Allergy Verified 07/06/21 14:41 Home Meds: Home Meds Lisinopril 20 mg PO DAILY 07/31/19 [History] Past Medical History HEENT History: Reports: None Other HEENT History: wears contacts Cardiovascular History: Reports: Hypertension Respiratory History: Reports: None Gastrointestinal History: Reports: Diverticulosis Genitourinary History: Reports: None Musculoskeletal History: Reports: Back Pain, Chronic Neurological History: Reports: None Psychiatric History: Reports: None Endocrine/Metabolic History: Reports: Obesity/BMI 30+ Hematologic History: Reports: None Immunologic History: Reports: None Oncologic (Cancer) History: Reports: None Dermatologic History: Reports: None - Infectious Disease History Infectious Disease History: Reports: Chicken Pox - Past Surgical History Head Surgeries/Procedures: Reports: None HEENT Surgical History: Reports: Cataract Surgery, Eye Surgery Other HEENT Surgeries/Procedures: cataract surgery on right eye at age of 5 yo Cardiovascular Surgical History: Reports: None Respiratory Surgical History: Reports: None GI Surgical History: Reports: None Male Surgical History: Reports: None Endocrine Surgical History: Reports: None Neurological Surgical History: Reports: None Musculoskeletal Surgical History: Reports: None Oncologic Surgical History: Reports: None Dermatological Surgical History: Reports: None Social & Family History - Family History Family Medical History: No Pertinent Family History Cardiac: Reports: Hypertension - Tobacco Use Tobacco Use Status *Q: Never Tobacco User Second Hand Smoke Exposure: No - Caffeine Use Caffeine Use: Reports: Coffee - Recreational Drug Use Recreational Drug Use: No ED ROS ENT - Review of Systems Review Of Systems: See Below Constitutional: Reports: No Symptoms HEENT: Reports: No Symptoms, Ear Pain Respiratory: Reports: No Symptoms Endocrine: Reports: No Symptoms GI/Abdominal: Reports: No Symptoms : Reports: No Symptoms Musculoskeletal: Reports: No Symptoms Skin: Reports: No Symptoms Neurological: Reports: No Symptoms Psychiatric: Reports: No Symptoms Hematologic/Lymphatic: Reports: No Symptoms Immunologic: Reports: No Symptoms ED EXAM, ENT - Physical Exam Exam: See Below Exam Limited By: No Limitations General Appearance: Alert, WD/WN, No Apparent Distress Eye Exam: Bilateral Eye: EOMI, PERRL Ears: Canal Swelling. No: Normal External Exam Head: Atraumatic Respiratory/Chest: No Respiratory Distress, Lungs Clear, Normal Breath Sounds Cardiovascular: Normal Peripheral Pulses, Regular Rate, Rhythm GI/Abdominal: Normal Bowel Sounds, Soft Back: Normal Inspection Extremities: Normal Inspection, Normal Range of Motion Neurological: Alert, Oriented, CN II-XII Intact, Normal Cognition, Normal Gait Course - Vital Signs Last Recorded V/S: Last Vital Signs Temp 97.7 F 07/06/21 14:41 Pulse 73 07/06/21 14:41 Resp 18 07/06/21 14:41 BP 143/88 H 07/06/21 14:41 Pulse Ox 95 07/06/21 14:41 - Orders/Labs/Meds Labs: Laboratory Tests 07/06/21 07/06/21 Range/Units 15:04 15:04 WBC 4.72 (4.0-11.0) K/uL RBC 5.16 (4.50-5.90) M/uL Hgb 15.9 (13.0-17.0) g/dL Hct 46.2 (38.0-50.0) % MCV 89.5 (80.0-98.0) fL MCH 30.8 (27.0-32.0) pg MCHC 34.4 (31.0-37.0) g/dL RDW Std Deviation 44.0 (28.0-62.0) fl RDW Coeff of Brigida 13 (11.0-15.0) % Plt Count 265 (150-400) K/uL MPV 9.70 (7.40-12.00) fL Neut % (Auto) 60.1 (48.0-80.0) % Lymph % (Auto) 30.3 (16.0-40.0) % [place] % (Auto) 6.6 (0.0-15.0) % Eos % (Auto) 1.9 (0.0-7.0) % Baso % (Auto) 1.1 (0.0-1.5) % Neut # (Auto) 2.8 (1.4-5.7) K/uL Lymph # (Auto) 1.4 (0.6-2.4) K/uL [place] # (Auto) 0.3 (0.0-0.8) K/uL Eos # (Auto) 0.1 (0.0-0.7) K/uL Baso # (Auto) 0.1 (0.0-0.1) K/uL Nucleated RBC % 0.0 /100WBC Nucleated RBCs # 0 K/uL Sodium 140 (136-148) mmol/L Potassium 4.2 (3.5-5.1) mmol/L Chloride 104 (98-107) mmol/L Carbon Dioxide 28.5 (21.0-32.0) mmol/L BUN 13 (7.0-18.0) mg/dL Creatinine 1.0 (0.8-1.3) mg/dL Est Cr Clr Drug Dosing 99.16 mL/min Estimated GFR (MDRD) > 60.0 ml/min Glucose 93 (74-106) mg/dL Calcium 8.9 (8.5-10.1) mg/dL Phosphorus 3.6 (2.6-4.7) mg/dL Magnesium 2.2 (1.8-2.4) mg/dL Total Bilirubin 0.4 (0.2-1.0) mg/dL AST 27 (15-37) IU/L ALT 51 (14-63) IU/L Alkaline Phosphatase 48 (46-116) U/L Creatine Kinase 334 H (26-308) U/L Total Protein 7.3 (6.4-8.2) g/dL Albumin 4.3 (3.4-5.0) g/dL Globulin 3.0 (2.6-4.0) g/dL Albumin/Globulin Ratio 1.4 (0.9-1.6) Meds: Medications Discontinued Medications Generic Name Dose Route Start Last Admin Trade Name Freq PRN Reason Stop Dose Admin Ketorolac Tromethamine 30 mg 08/28/21 15:11 07/06/21 15:53 Ketorolac 30 Mg/Ml Sdv IM 07/06/21 15:12 30 mg ONETIME ONE Administration - Re-Assessments/Exams Free Text/Narrative Re-Assessment/Exam: 07/06/21 15:56 Patient labs reviewed normal. Patient is no signs of infection of the ear will start patient to try Motrin Tylenol as needed and follow-up with primary care physician. Departure - Departure Time of Disposition: 15:56 Disposition: Home, Self-Care 01 Condition: Good Clinical Impression: Ear discomfort - Discharge Information *PRESCRIPTION DRUG MONITORING PROGRAM REVIEWED*: Not Applicable *COPY OF PRESCRIPTION DRUG MONITORING REPORT IN PATIENT LAURA: Not Applicable Instructions: Pain Medicine Instructions, [id number], General Headache Without Cause, [id number] Referrals: Vannessa Alas, [Primary Care Provider] - Forms: ED Department Discharge Additional Instructions: The following information is given to patients seen in the emergency department who are being discharged to home. This information is to outline your options for follow-up care. We provide all patients seen in our emergency department with a follow-up referral. The need for follow-up, as well as the timing and circumstances, are variable depending upon the specifics of your emergency department visit. If you don't have a primary care physician on staff, we will provide you with a referral. We always advise you to contact your personal physician following an emergency department visit to inform them of the circumstance of the visit and for follow-up with them and/or the need for any referrals to a consulting specialist. The emergency department will also refer you to a specialist when appropriate. This referral assures that you have the opportunity for follow-up care with a specialist. All of these measure are taken in an effort to provide you with optimal care, which includes your follow-up. Under all circumstances we always encourage you to contact your private physician who remains a resource for coordinating your care. When calling for follow-up care, please make the office aware that this follow-up is from your re cent emergency room visit. If for any reason you are refused follow-up, please contact the [facility] Emergency Department at and asked to speak to the emergency department charge nurse. Please follow up with your primary care physician. If you do not have a primary care physician, see below: [facility] [address] [place] [address] [facility] [address] [place] [address] You were seen today for pain to both ears for the past month. On exam he had no neurological deficits your labs reviewed and are within normal range. Unclear cause was causing the ear pain we would like for you to follow-up with your primary care physician and do not have one please call the number above is only can follow-up with you next week. If you have any other concerning signs or symptoms please return to ED. Sepsis Event Note (ED) - Focused Exam Vital Signs: Vital Signs Temp Pulse Resp BP Pulse Ox 07/06/21 14:41 97.7 F 73 18 143/88 H 95 - Assessment/Plan Plan: Patient is a 50-year-old male presents today for bilateral ear pain for the past few months. On exam there is no signs of infection but he does have some tenderness to the ear canal when looking inside. He has no fevers or chills no other neurological deficits. Will take basic labs and reassess
[2021-07-06] MEDS ORDERED: Ketorolac 30 MG/ML SDV IM ONE (15:11)
[2021-07-06 15:43] LABS: BLOOD UREA NITROGEN,BUN 13 mg/dL (7.0-18.0); CARBON DIOXIDE,CO2 28.5 mmol/L (21.0-32.0); CHLORIDE,CL 104 mmol/L (98-107); GLUCOSE RANDOM 93 mg/dL (74-106); POTASSIUM,K 4.2 mmol/L (3.5-5.1); SODIUM,NA 140 mmol/L (136-148)
[2021-07-06 19:17] VITALS: BP 134/87; PULSE 82
== END 2021-07-06 16:08 | disposition home or self-care (01) ==
LOC: MW.ED 12:57
DX: H92.03 Otalgia, bilateral (principal); I10 Essential (primary) hypertension; E66.9 Obesity, unspecified; Z68.39 Body mass index [BMI] 39.0-39.9, adult
CPT/HCPCS: 36415; 80053; 82550; 83735; 84100; 85025; 96372; 99284; J1885

== ENCOUNTER 2022-05-08 21:05 | Emergency (ER) | payer BC ==
[2022-05-08] MEDS ORDERED: Sodium Chloride 0.9% 2.5 ML Syringe FLUSH PRN (21:24)
[2022-05-08] MEDS ORDERED: Sodium Chloride 0.9% 10 ML Syringe FLUSH PRN (21:24)
[2022-05-08 22:30] LABS: CARBON DIOXIDE,CO2 28.2 mmol/L (21.0-32.0)
[2022-05-08 22:37] LABS: CORONAVIRUS COVID-19 NAA NEGATIVE (NEGATIVE); INFLUENZA A NAA NEGATIVE (NEGATIVE); INFLUENZA B NAA NEGATIVE (NEGATIVE)
[2022-05-08 23:36] VITALS: BP 152/65; PULSE 69
== END 2022-05-08 23:34 | disposition home or self-care (01) ==
LOC: MW.ED 21:05
DX: R10.32 Left lower quadrant pain (principal); I10 Essential (primary) hypertension; E66.9 Obesity, unspecified; Z68.36 Body mass index [BMI] 36.0-36.9, adult; Z79.899 Other long term (current) drug therapy; Z20.822 Contact with and (suspected) exposure to COVID-19
CPT/HCPCS: 0240U; 36415; 80053; 81001; 83690; 85025; 87086; 99284; J3490

== ENCOUNTER 2022-12-13 03:36 | Emergency (ER) | payer BC ==
[2022-12-13] MEDS ORDERED: Sodium Chloride 0.9% 10 ML Syringe FLUSH PRN (04:39)
[2022-12-13] MEDS ORDERED: Sodium Chloride 0.9% 2.5 ML Syringe FLUSH PRN (04:39)
[2022-12-13] MEDS ORDERED: Sodium Chloride 0.9% 1,000 ML IV ONE (04:39)
[2022-12-13] MEDS ORDERED: Ketorolac 30 MG/ML SDV IVPUSH ONE (04:40)
[2022-12-13 05:35] LABS: CARBON DIOXIDE,CO2 26.7 mmol/L (21.0-32.0)
[2022-12-13] MEDS ORDERED: Doxycycline 100 MG in Sodium Chloride 0.9% 100 ML IV STA (05:53)
[2022-12-13] MEDS ORDERED: cefTRIAXone 1 GM in Sodium Chloride 0.9% 50 ML IV ONE (05:53)
[2022-12-13] MEDS ORDERED: Ondansetron 4 MG/2 ML SDV IVPUSH ONE (06:05)
[2022-12-13] MEDS ORDERED: fentaNYL 50 MCG/ML SDV IVPUSH ONE ×2 (06:05→06:46)
[2022-12-13 07:40] LABS: C. TRACHOMATIS BY PCR DETECTED; N. GONORRHOEAE BY PCR NOT DETECTED
[2022-12-13 07:52] VITALS: BP 118/74; PULSE 74
== END 2022-12-13 09:38 | disposition home or self-care (01) ==
LOC: MW.ED 03:36
DX: A56.19 Other chlamydial genitourinary infection (principal); I10 Essential (primary) hypertension; E66.9 Obesity, unspecified; Z79.899 Other long term (current) drug therapy; Z87.891 Personal history of nicotine dependence; Z68.36 Body mass index [BMI] 36.0-36.9, adult
CPT/HCPCS: 36415; 74176; 76870; 80053; 81001; 83605; 85025; 87040; 87086; 87491; 87591; 93976; 96361; 96365; 96367; 96375; 96376; 99284; J0696; J1885; J2405; J3010; J3490; J7030; J7050

== ENCOUNTER 2023-03-21 19:08 | Emergency (ER) | payer BC ==
[2023-03-21] MEDS ORDERED: Sodium Chloride 0.9% 1,000 ML IV ONE (19:26)
[2023-03-21] MEDS ORDERED: Morphine 4 MG/ML Syringe IVPUSH ONE (19:32)
[2023-03-21] MEDS ORDERED: Ondansetron 4 MG/2 ML SDV IVPUSH ONE (19:32)
[2023-03-21 19:37] LABS: BASOPHILS PERCENT AUTO 0.8 % (0.0-1.5); EOSINOPHILS ABSOLUTE AUTO 0.1 K/uL (0.0-0.7); EOSINOPHILS PERCENT AUTO 2.8 % (0.0-7.0); HEMATOCRIT 46.5 % (38.0-50.0); HEMOGLOBIN 16.5 g/dL (13.0-17.0); LYMPHOCYTES ABSOLUTE AUTO 1.7 K/uL (0.6-2.4); LYMPHOCYTES PERCENT AUTO 35.8 % (16.0-40.0); MEAN CORPUSCULAR HGB CONC 35.5 g/dL (31.0-37.0); MEAN CORPUSCULAR VOLUME 87.4 fL (80.0-98.0); MONOCYTES ABSOLUTE AUTO 0.4 K/uL (0.0-0.8); MONOCYTES PERCENT AUTO 8.7 % (0.0-15.0); NEUTROPHILS ABSOLUTE AUTO 2.5 K/uL (1.4-5.7); NEUTROPHILS PERCENT AUTO 51.9 % (48.0-80.0); NRBC ABSOLUTE 0 K/uL; PLATELET COUNT,PLT 275 K/uL (150-400); RED BLOOD CELL COUNT 5.32 M/uL (4.50-5.90); WHITE BLOOD CELL COUNT,WBC 4.72 K/uL (4.0-11.0)
[2023-03-21 20:00] LABS: A/G RATIO 1.2 (0.9-1.6); ALBUMIN 4.1 g/dL (3.4-5.0); BILIRUBIN TOTAL 0.6 mg/dL (0.2-1.0); CALCIUM 8.8 mg/dL (8.5-10.1); CARBON DIOXIDE,CO2 26.4 mmol/L (21.0-32.0); CREATININE 1.1 mg/dL (0.8-1.3); EST CRCL DRUG DOSING (CG) 90.8 mL/min; POTASSIUM,K 4.1 mmol/L (3.5-5.1); PROTEIN TOTAL,TP 7.5 g/dL (6.4-8.2)
[2023-03-21] MEDS ORDERED: Iopamidol 755 MG/ML 500 ML Multipack Bottle IVPUSH ONE (20:04)
[2023-03-21 22:08] VITALS: BP 117/67; PULSE 67
== END 2023-03-21 22:08 | disposition home or self-care (01) ==
LOC: MW.ED 19:08
DX: R10.32 Left lower quadrant pain (principal); R11.0 Nausea; E66.9 Obesity, unspecified; I10 Essential (primary) hypertension; Z68.36 Body mass index [BMI] 36.0-36.9, adult
CPT/HCPCS: 36415; 74177; 80053; 85025; 86850; 86900; 86901; 96361; 96374; 96375; 99284; J2270; J2405; J7030; Q9967; 99283

== ENCOUNTER 2023-05-04 09:03 | Day surgery (SDC) | payer BC ==
[~2023-05-04 09:03] MED LIST: Lactated Ringers 1,000 ML IV SCH; Propofol 200 MG/20 ML SDV ONE
[2023-05-04] MEDS ORDERED: Propofol 200 MG/20 ML SDV ONE (10:21)
[2023-05-04] MEDS ORDERED: Dexmedetomidine 200 MCG/2 ML SDV ONE (10:54)
[2023-05-04] MEDS ORDERED: Lactated Ringers 1,000 ML IV SCH (11:00)
[2023-05-04 11:27] VITALS: BP 115/81; PULSE 71
== END 2023-05-04 11:50 | disposition home or self-care (01) ==
LOC: MW.SDS 09:03
PROVIDERS: ATTEND Surgery
DX: K29.50 Unspecified chronic gastritis without bleeding (principal); K21.00 Gastro-esophageal reflux disease with esophagitis, without bleeding; K31.89 Other diseases of stomach and duodenum; F41.9 Anxiety disorder, unspecified; M19.90 Unspecified osteoarthritis, unspecified site; I10 Essential (primary) hypertension; E66.9 Obesity, unspecified; F17.290 Nicotine dependence, other tobacco product, uncomplicated; Z87.09 Personal history of other diseases of the respiratory system; Z86.010 Personal history of colon polyps; Z79.899 Other long term (current) drug therapy; Z98.890 Other specified postprocedural states; Z68.35 Body mass index [BMI] 35.0-35.9, adult
CPT/HCPCS: 43239; 45378; J2704; J7120; 00813; J3490

== ENCOUNTER 2024-06-09 02:54 | Emergency (ER) | payer BC ==
[2024-06-09 03:13] LABS: BASOPHILS ABSOLUTE AUTO 0.05 K/uL (0.00-0.20); BASOPHILS PERCENT AUTO 1.1 % (0.0-1.0); EOSINOPHILS ABSOLUTE AUTO 0.18 K/uL (0.00-0.45); EOSINOPHILS PERCENT AUTO 3.9 % (0.0-6.0); HEMATOCRIT 47.7 % (42.0-52.0); HEMOGLOBIN 16.8 g/dL (14.0-18.0); LYMPHOCYTES ABSOLUTE AUTO 1.64 K/uL (1.00-4.80); LYMPHOCYTES PERCENT AUTO 35.2 % (24.0-44.0); MEAN CORPUSCULAR HEMOGLOBIN 30.7 pg (28.0-32.0); MEAN CORPUSCULAR HGB CONC 35.2 g/dL (32.0-36.0); MEAN CORPUSCULAR VOLUME 87.2 fL (83.0-99.0); MEAN PLATELET VOLUME 9.3 fL (9.4-12.4); MONOCYTES ABSOLUTE AUTO 0.62 K/uL (0.00-0.80); MONOCYTES PERCENT AUTO 13.3 % (0.0-8.0); NEUTROPHILS ABSOLUTE AUTO 2.17 K/uL (1.80-7.70); NEUTROPHILS PERCENT AUTO 46.5 % (41.0-71.0); PLATELET COUNT,PLT 280 K/uL (150-400); RED BLOOD CELL COUNT 5.47 M/uL (4.52-5.90); WHITE BLOOD CELL COUNT,WBC 4.66 K/uL (3.9-11.3)
[2024-06-09] MEDS: Ondansetron 4 MG/2 ML SDV IVPUSH ONE (03:19)
[2024-06-09 03:26] LABS: APPEARANCE,URINE CLEAR; COLOR,URINE YELLOW; GLUCOSE,URINE NEGATIVE (NEGATIVE); KETONES,URINE NEGATIVE (NEGATIVE); LEUKOCYTE ESTERASE,URINE NEGATIVE (NEGATIVE); NITRITE,URINE NEGATIVE (NEGATIVE); OCCULT BLOOD,URINE NEGATIVE (NEGATIVE); PROTEIN,URINE NEGATIVE (NEGATIVE); UROBILINOGEN,URINE 0.2 EU/dL (<2.0)
[2024-06-09 03:29] LABS: INR 1.04 (0.86-1.11); PTT,PARTIAL THROMBOPLSTIN TIME 28.5 SEC (23.9-30.7)
[2024-06-09 03:31] LABS: BILIRUBIN,URINE SMALL (NEGATIVE)
[2024-06-09 03:39] LABS: A/G RATIO 1.6 (0.9-1.6); ALBUMIN 4.5 g/dL (3.4-5.0); CALCIUM 9.3 mg/dL (8.5-10.1); CARBON DIOXIDE,CO2 25.9 mmol/L (21.0-32.0); EST CRCL DRUG DOSING (CG) 98.77 mL/min; POTASSIUM,K 3.7 mmol/L (3.5-5.1); PROTEIN TOTAL,TP 7.4 g/dL (6.4-8.2)
[2024-06-09 03:44] LABS: LACTIC ACID 0.8 mmol/L (0.4-2.0)
[2024-06-09] MEDS: Iopamidol 755 Mg/ML 100 ML Bottle IVPUSH ONE (04:00)
[2024-06-09 05:02] VITALS: BP 140/93; PULSE 68
== END 2024-06-09 05:02 | disposition home or self-care (01) ==
LOC: MW.ED 02:54
DX: K62.5 Hemorrhage of anus and rectum (principal); I10 Essential (primary) hypertension; E66.9 Obesity, unspecified; Z68.36 Body mass index [BMI] 36.0-36.9, adult; Z79.899 Other long term (current) drug therapy; Z75.8 Other problems related to medical facilities and other health care
CPT/HCPCS: 36415; 74174; 80053; 81003; 83605; 85025; 85610; 85730; 86850; 86900; 86901; 96374; 99284; J2405; Q9967; 99283

== ENCOUNTER 2024-08-02 11:09 | Emergency (ER) | payer BC ==
[2024-08-02] MEDS ORDERED: Sodium Chloride 0.9% 10 ML Syringe FLUSH PRN (11:19)
[2024-08-02] MEDS ORDERED: Sodium Chloride 0.9% 2.5 ML Syringe FLUSH PRN (11:19)
[2024-08-02 12:21] LABS: BASOPHILS ABSOLUTE AUTO 0.04 K/uL (0.00-0.20); BASOPHILS PERCENT AUTO 0.9 % (0.0-1.0); EOSINOPHILS ABSOLUTE AUTO 0.08 K/uL (0.00-0.45); EOSINOPHILS PERCENT AUTO 1.9 % (0.0-6.0); HEMATOCRIT 44.6 % (42.0-52.0); HEMOGLOBIN 15.4 g/dL (14.0-18.0); IMMATURE GRAN ABSOLUTE AUTO 0.01 K/uL (0.00-0.05); IMMATURE GRAN PERCENT AUTO 0.2 % (0.0-0.4); LYMPHOCYTES ABSOLUTE AUTO 0.95 K/uL (1.00-4.80); LYMPHOCYTES PERCENT AUTO 22.4 % (24.0-44.0); MEAN CORPUSCULAR HEMOGLOBIN 30.9 pg (28.0-32.0); MEAN CORPUSCULAR HGB CONC 34.5 g/dL (32.0-36.0); MEAN CORPUSCULAR VOLUME 89.4 fL (83.0-99.0); MEAN PLATELET VOLUME 9.4 fL (9.4-12.4); MONOCYTES ABSOLUTE AUTO 0.36 K/uL (0.00-0.80); MONOCYTES PERCENT AUTO 8.5 % (0.0-8.0); NEUTROPHILS ABSOLUTE AUTO 2.81 K/uL (1.80-7.70); NEUTROPHILS PERCENT AUTO 66.1 % (41.0-71.0); PLATELET COUNT,PLT 263 K/uL (150-400); RED BLOOD CELL COUNT 4.99 M/uL (4.52-5.90); WHITE BLOOD CELL COUNT,WBC 4.25 K/uL (3.9-11.3)
[2024-08-02 12:22] LABS: APPEARANCE,URINE SLT CLOUDY; BILIRUBIN,URINE NEGATIVE (NEGATIVE); GLUCOSE,URINE NEGATIVE (NEGATIVE); KETONES,URINE NEGATIVE (NEGATIVE); LEUKOCYTE ESTERASE,URINE NEGATIVE (NEGATIVE); NITRITE,URINE NEGATIVE (NEGATIVE); OCCULT BLOOD,URINE NEGATIVE (NEGATIVE); PH,URINE 5.5 (5.0-8.0); PROTEIN,URINE NEGATIVE (NEGATIVE); UROBILINOGEN,URINE 0.2 EU/dL (<2.0)
[2024-08-02] MEDS: Acetaminophen/HYDROcodone 325-5 MG Tab PO ONE (12:25)
[2024-08-02 12:27] VITALS: BP 118/78; PULSE 70
[2024-08-02 12:28] LABS: COLOR,URINE DARK YELLOW
[2024-08-02 12:54] LABS: A/G RATIO 1.4 (0.9-1.6); ALBUMIN 4.1 g/dL (3.4-5.0); BILIRUBIN TOTAL 0.7 mg/dL (0.2-1.0); CALCIUM 9.2 mg/dL (8.5-10.1); CARBON DIOXIDE,CO2 30.8 mmol/L (21.0-32.0); EST CRCL DRUG DOSING (CG) 95.92 mL/min; POTASSIUM,K 3.8 mmol/L (3.5-5.1); PROTEIN TOTAL,TP 7.1 g/dL (6.4-8.2)
[2024-08-02 12:59] LABS: LACTIC ACID 1.4 mmol/L (0.4-2.0)
[2024-08-02] MEDS: Iopamidol 755 MG/ML 500 ML Multipack Bottle IVPUSH STA (13:33)
== END 2024-08-02 15:41 | disposition home or self-care (01) ==
LOC: MW.ED 11:09
DX: R10.32 Left lower quadrant pain (principal); I10 Essential (primary) hypertension; E66.9 Obesity, unspecified; F17.210 Nicotine dependence, cigarettes, uncomplicated; Z79.899 Other long term (current) drug therapy; Z75.8 Other problems related to medical facilities and other health care; Z68.37 Body mass index [BMI] 37.0-37.9, adult
CPT/HCPCS: 36415; 74177; 80053; 81003; 83605; 83690; 85025; 99284; A9270; Q9967

== ENCOUNTER 2025-05-08 17:13 | Emergency (ER) | payer BC ==
[2025-05-08 17:24] LABS: BASOPHILS ABSOLUTE AUTO 0.06 K/uL (0.00-0.20); EOSINOPHILS ABSOLUTE AUTO 0.17 K/uL (0.00-0.45); EOSINOPHILS PERCENT AUTO 2.8 % (0.0-6.0); HEMATOCRIT 46.4 % (42.0-52.0); HEMOGLOBIN 16.2 g/dL (14.0-18.0); IMMATURE GRAN ABSOLUTE AUTO 0.01 K/uL (0.00-0.05); IMMATURE GRAN PERCENT AUTO 0.2 % (0.0-0.4); LYMPHOCYTES ABSOLUTE AUTO 0.82 K/uL (1.00-4.80); LYMPHOCYTES PERCENT AUTO 13.7 % (24.0-44.0); MEAN CORPUSCULAR HEMOGLOBIN 30.8 pg (28.0-32.0); MEAN CORPUSCULAR HGB CONC 34.9 g/dL (32.0-36.0); MEAN CORPUSCULAR VOLUME 88.2 fL (83.0-99.0); MEAN PLATELET VOLUME 9.2 fL (9.4-12.4); MONOCYTES ABSOLUTE AUTO 0.63 K/uL (0.00-0.80); MONOCYTES PERCENT AUTO 10.5 % (0.0-8.0); NEUTROPHILS PERCENT AUTO 71.8 % (41.0-71.0); PLATELET COUNT,PLT 259 K/uL (150-400); RED BLOOD CELL COUNT 5.26 M/uL (4.52-5.90); WHITE BLOOD CELL COUNT,WBC 5.99 K/uL (3.9-11.3)
[2025-05-08 17:47] LABS: A/G RATIO 1.4 (0.9-1.6); ALANINE AMINOTRANSFERASE,ALT 49 IU/L (14-63); ALBUMIN 4.3 g/dL (3.4-5.0); ALKALINE PHOSPHATASE 58 U/L (46-116); ASPARTATE AMNIOTRANSFERASE,AST 26 IU/L (15-37); BILIRUBIN TOTAL 0.7 mg/dL (0.2-1.0); BLOOD UREA NITROGEN,BUN 17 mg/dL (7.0-18.0); CALCIUM 8.9 mg/dL (8.5-10.1); CHLORIDE,CL 105 mmol/L (98-107); CREATINE KINASE,CK 400 U/L (26-308); CREATININE 1.2 mg/dL (0.8-1.3); GLUCOSE RANDOM 137 mg/dL (74-106); LIPASE 48 U/L (16-77); MAGNESIUM 2.2 mg/dL (1.8-2.4); POTASSIUM,K 3.4 mmol/L (3.5-5.1); PROTEIN TOTAL,TP 7.4 g/dL (6.4-8.2); SODIUM,NA 142 mmol/L (136-148)
[2025-05-08 17:49] LABS: ESTIMATED GFR 73 mL/min (>60)
[2025-05-08] MEDS: Sodium Chloride 0.9% 1,000 ML IV ONE ×2 (19:06)
[2025-05-08] MEDS: Ketorolac 30 MG/ML SDV IVPUSH ONE (19:07)
[2025-05-08] MEDS: Iopamidol 755 MG/ML 500 ML Multipack Bottle IVPUSH ONE (20:02)
[2025-05-08 20:24] LABS: APPEARANCE,URINE CLEAR; BILIRUBIN,URINE NEGATIVE (NEGATIVE); COLOR,URINE YELLOW; GLUCOSE,URINE NEGATIVE (NEGATIVE); KETONES,URINE NEGATIVE (NEGATIVE); LEUKOCYTE ESTERASE,URINE NEGATIVE (NEGATIVE); NITRITE,URINE NEGATIVE (NEGATIVE); OCCULT BLOOD,URINE NEGATIVE (NEGATIVE); PH,URINE 5.5 (5.0-8.0); PROTEIN,URINE NEGATIVE (NEGATIVE); UROBILINOGEN,URINE 0.2 EU/dL (<2.0)
[2025-05-08] MEDS: Amoxicillin/Clavulanate K 875-125 MG Tab PO ONE (21:43)
[2025-05-08 21:44] VITALS: BP 102/69; PULSE 78
== END 2025-05-08 22:03 | disposition home or self-care (01) ==
LOC: MW.ED 17:13
DX: E86.0 Dehydration (principal); J69.0 Pneumonitis due to inhalation of food and vomit; R74.8 Abnormal levels of other serum enzymes; I10 Essential (primary) hypertension; Z75.3 Unavailability and inaccessibility of health-care facilities; Z79.899 Other long term (current) drug therapy
CPT/HCPCS: 36415; 70450; 71275; 80053; 80307; 81003; 82550; 83690; 83735; 84484; 85025; 96361; 96374; 99284; A9270; J1885; J7030; Q9967

== ENCOUNTER 2025-05-11 18:23 | Emergency (ER) | payer BC ==
[2025-05-11 20:14] LABS: BASOPHILS ABSOLUTE AUTO 0.04 K/uL (0.00-0.20); BASOPHILS PERCENT AUTO 0.6 % (0.0-1.0); EOSINOPHILS ABSOLUTE AUTO 0.30 K/uL (0.00-0.45); EOSINOPHILS PERCENT AUTO 4.3 % (0.0-6.0); IMMATURE GRAN ABSOLUTE AUTO 0.01 K/uL (0.00-0.05); IMMATURE GRAN PERCENT AUTO 0.1 % (0.0-0.4); LYMPHOCYTES ABSOLUTE AUTO 0.79 K/uL (1.00-4.80); LYMPHOCYTES PERCENT AUTO 11.4 % (24.0-44.0); MEAN PLATELET VOLUME 9.7 fL (9.4-12.4); MONOCYTES ABSOLUTE AUTO 0.48 K/uL (0.00-0.80); MONOCYTES PERCENT AUTO 6.9 % (0.0-8.0); NEUTROPHILS ABSOLUTE AUTO 5.33 K/uL (1.80-7.70); NEUTROPHILS PERCENT AUTO 76.7 % (41.0-71.0); NRBC ABSOLUTE 0.00 K/uL (0.00-0.02); NRBC PERCENT 0.0 /100WBC (0.0-0.2); PLATELET COUNT,PLT 275 K/uL (150-400); RED BLOOD CELL COUNT 5.61 M/uL (4.52-5.90); WHITE BLOOD CELL COUNT,WBC 6.95 K/uL (3.9-11.3)
[2025-05-11 20:42] LABS: A/G RATIO 1.1 (0.9-1.6); ALANINE AMINOTRANSFERASE,ALT 47.0 IU/L (14-63); ASPARTATE AMNIOTRANSFERASE,AST 28.0 IU/L (15-37); BILIRUBIN TOTAL 0.9 mg/dL (0.2-1.0); BLOOD UREA NITROGEN,BUN 12.0 mg/dL (7.0-18.0); CARBON DIOXIDE,CO2 31.3 mmol/L (21.0-32.0); CHLORIDE,CL 101.0 mmol/L (98-107); CREATININE 1.1 mg/dL (0.8-1.3); EST CRCL DRUG DOSING (CG) 88.78 mL/min; ESTIMATED GFR 81.0 mL/min (>60); GLUCOSE RANDOM 119.0 mg/dL (74-106); POTASSIUM,K 3.6 mmol/L (3.5-5.1); PROTEIN TOTAL,TP 7.9 g/dL (6.4-8.2); SODIUM,NA 142.0 mmol/L (136-148)
[2025-05-11 22:58] VITALS: BP 148/74; PULSE 78
== END 2025-05-11 22:57 | disposition home or self-care (01) ==
LOC: MW.ED 18:23
DX: L03.115 Cellulitis of right lower limb (principal); L03.116 Cellulitis of left lower limb; I10 Essential (primary) hypertension; Z79.899 Other long term (current) drug therapy
CPT/HCPCS: 36415; 80053; 85025; 99283; A9270